=== PATIENT | female | born 1980 | race Caucasian/White ===

== ENCOUNTER 2018-10-08 15:25 | Emergency (ER) | payer BC, MEDICAID ==
--- NOTE | 2018-10-08 16:34 | EDM.PDOC ---
ED HPI GENERAL MEDICAL PROBLEM - General Chief Complaint: Lower Extremity Injury/Pain Stated Complaint: INJURED RIGHT FOOT Time Seen by Provider: 10/08/18 16:15 Source of Information: Reports: Patient, Family History Limitations: Reports: No Limitations - History of Present Illness INITIAL COMMENTS - FREE TEXT/NARRATIVE: 38-year-old female stumbled and turned her ankle last evening, today she is having significant pain bearing weight and swelling and pain around the ankle especially laterally. No other injury. Onset: Sudden Duration: Other (Last evening) Associated Symptoms: Reports: No Other Symptoms Right Feet Pain Score (Numeric/FACES): 8 - Related Data Allergies Allergy/AdvReac Type Severity Reaction Status Date / Time No Known Allergies Allergy Verified 10/08/18 16:06 Home Meds: Home Meds Baclofen 5 mg PO ASDIRECTED 10/08/18 [History] Gabapentin [Neurontin] 600 mg PO TID 10/08/18 [History] Metoprolol Succinate 25 mg PO BID 10/08/18 [History] Omeprazole 40 mg PO ONETIME 10/08/18 [History] Oxybutynin 10 mg PO BID 10/08/18 [History] Prazosin HCl [Prazosin] 500 mg PO BEDTIME 10/08/18 [History] SUMAtriptan Succinate [Imitrex] 25 mg PO DAILY PRN 10/08/18 [History] Venlafaxine [Effexor] 150 mg PO BID 10/08/18 [History] Past Medical History HEENT History: Reports: Impaired Vision Cardiovascular History: Reports: Hypertension Gastrointestinal History: Reports: GERD Genitourinary History: Reports: Other (See Below) Other Genitourinary History: bladder spasms [employer] History: Reports: Endometriosis, Musculoskeletal History: Reports: Other (See Below) Other Musculoskeletal History: herniated disk Neurological History: Reports: Migraines Psychiatric History: Reports: ADHD, Anxiety, Bipolar, PTSD Endocrine/Metabolic History: Reports: Obesity/BMI 30+ Oncologic (Cancer) History: Reports: Cervix - Past Surgical History Head Surgeries/Procedures: Reports: None Cardiovascular Surgical History: Reports: None GI Surgical History: Reports: Cholecystectomy Female Surgical History: Reports: Other (See Below) Other Female Surgeries/Procedures: right overy removed Endocrine Surgical History: Reports: None Neurological Surgical History: Reports: None Musculoskeletal Surgical History: Reports: None Oncologic Surgical History: Reports: None Dermatological Surgical History: Reports: None Social & Family History - Tobacco Use Smoking Status *Q: Current Every Day Smoker Years of Tobacco use: 20 Packs/Tins Daily: 1 Used Tobacco, but Quit: No Second Hand Smoke Exposure: Yes - Caffeine Use Caffeine Use: Reports: Coffee, Energy Drinks, Soda, Tea - Recreational Drug Use Recreational Drug Use: No Review of Systems - Review of Systems Review Of Systems: See Below Constitutional: Denies: Fever Respiratory: Reports: No Symptoms Cardiovascular: Reports: No Symptoms GI/Abdominal: Reports: No Symptoms Neurological: Reports: No Symptoms ED EXAM, GENERAL - Physical Exam Exam: See Below Exam Limited By: No Limitations General Appearance: Alert, No Apparent Distress Respiratory/Chest: No Respiratory Distress Extremities: Other (Exam is otherwise limited to the right lower extremity. Patient has swelling and pain over the lateral malleolus, and also at the base of the first metatarsal.) Course - Vital Signs Last Recorded V/S: Last Vital Signs Temp 98.3 F 10/08/18 16:11 Pulse 101 H 10/08/18 16:11 Resp 16 10/08/18 16:11 BP 108/65 10/08/18 16:11 Pulse Ox 98 10/08/18 16:11 - Re-Assessments/Exams Free Text/Narrative Re-Assessment/Exam: 10/08/18 16:33 X-ray of the right foot and right ankle were obtained. 10/08/18 17:28 X-rays of the right foot and right ankle were negative. A four-inch Justino wrap was applied to the foot. Patient was going to be fitted for crutches but was impatient and left before any further treatment could be given. She did ambulate out of the emergency room with very little if any limping. Departure - Departure Time of Disposition: 17:40 Disposition: Home, Self-Care 01 Clinical Impression: Sprain of right ankle Qualifiers: Encounter type: initial encounter Involved ligament of ankle: anterior talofibular ligament Qualified Code(s): S93.491A - Sprain of other ligament of right ankle, initial encounter - Discharge Information Instructions: Ankle Sprain, [id number] Referrals: PCP,None [Primary Care Provider] - Forms: ED Department Discharge Care Plan Goals: Increase activity as tolerated, Tylenol for pain. Recheck next week if not improving satisfactorily. Wrapping ankle to support swelling for the next several days will be beneficial.
--- NOTE | 2018-10-08 16:48 | CRLCR ---
HISTORY: Pain after injury COMPARISON: None available. FINDINGS: AP, lateral and oblique views of the right ankle were obtained for a total of three views. There is no sign of fracture or dislocation. The ankle mortise is intact. The talar dome is intact. There is no sign of a joint effusion. There is moderate lateral and mild anterior and medial soft tissue swelling. There is no sign of any gas in the soft tissues or radiopaque foreign body. No degenerative changes are seen IMPRESSION: No sign of acute osseous injury. Moderate lateral soft tissue swelling. Mild medial and anterior soft tissue swelling. Dictated by Sumeet Borjas MD @ Oct 08 2018 4:45PM Signed by Dr. Sumeet Borjas @ Oct 08 2018 4:46PM
--- NOTE | 2018-10-08 16:48 | CRLCR ---
HISTORY: Pain after injury COMPARISON: None available. FINDINGS: The right foot is examined with AP, lateral, and oblique views. There is no sign of fracture or dislocation. The soft tissues in the foot are normal in appearance without sign of radio-opaque foreign body. There is mild anterior swelling of the ankle. No significant degenerative disease is seen. IMPRESSION: No sign of acute osseous injury of the foot. Mild anterior ankle soft tissue swelling. Dictated by Sumeet Borjas MD @ Oct 08 2018 4:46PM Signed by Dr. Sumeet Borjas @ Oct 08 2018 4:47PM
== END 2018-10-08 17:30 | disposition home or self-care (01) ==
LOC: JP.ED 15:25
DX: S93.491A Sprain of other ligament of right ankle, initial encounter (principal); I10 Essential (primary) hypertension; K21.9 Gastro-esophageal reflux disease without esophagitis; F41.9 Anxiety disorder, unspecified; F31.9 Bipolar disorder, unspecified; F17.210 Nicotine dependence, cigarettes, uncomplicated; Z79.899 Other long term (current) drug therapy; X50.1XXA Overexertion from prolonged static or awkward postures, initial encounter
CPT/HCPCS: 73610-RT; 73630-RT; 99283-25

== ENCOUNTER 2019-01-01 11:08 | Observation (INO) | payer MEDICAID ==
--- NOTE | 2019-01-01 11:48 | EDM.PDOC ---
ED HPI GENERAL MEDICAL PROBLEM - General Chief Complaint: Abdominal Pain Stated Complaint: ABDOMINAL PAIN,PANCREATITIS Time Seen by Provider: 01/01/19 11:48 Source of Information: Reports: Patient History Limitations: Reports: No Limitations - History of Present Illness INITIAL COMMENTS - FREE TEXT/NARRATIVE: pt arrived with pain in epigastric area and rt upper abdoman. . She was hospitalized at [facility] for 1 day and then she left on her own, She was told that she had pancreatitis. She last drank about 2 weeks ago. Onset: Other (pt states her pain is alot worse--rating her pain at a 9. ) Duration: Day(s): Location: Reports: Abdomen Associated Symptoms: Reports: Loss of Appetite, Other (nausea an increased pain. ) Abdomen Pain Score (Numeric/FACES): 8 - Related Data Allergies Allergy/AdvReac Type Severity Reaction Status Date / Time No Known Allergies Allergy Verified 01/01/19 11:30 Home Meds: Home Meds Baclofen 5 mg PO ASDIRECTED 10/08/18 [History] Omeprazole 40 mg PO ONETIME 10/08/18 [History] Oxybutynin 10 mg PO BID 10/08/18 [History] Prazosin HCl [Prazosin] 500 mg PO BEDTIME 10/08/18 [History] SUMAtriptan Succinate [Imitrex] 25 mg PO DAILY PRN 10/08/18 [History] Venlafaxine [Effexor] 150 mg PO BID 10/08/18 [History] Ciprofloxacin HCl [Cipro] 500 mg PO BID 01/01/19 [History] Gabapentin [Neurontin] 300 mg PO ACLUNCH 01/01/19 [History] Gabapentin [Neurontin] 900 mg PO BIDAC 01/01/19 [History] Ondansetron [Zofran ODT] 4 mg PO Q6H PRN 01/01/19 [History] oxyCODONE 5 mg PO Q4HR 01/01/19 [History] Past Medical History HEENT History: Reports: Impaired Vision Cardiovascular History: Reports: Hypertension Gastrointestinal History: Reports: GERD, Pancreatitis Genitourinary History: Reports: Other (See Below) Other Genitourinary History: bladder spasms [employer] History: Reports: Endometriosis, Musculoskeletal History: Reports: Other (See Below) Other Musculoskeletal History: herniated disk Neurological History: Reports: Migraines Psychiatric History: Reports: ADHD, Anxiety, Bipolar, PTSD Endocrine/Metabolic History: Reports: Obesity/BMI 30+ Oncologic (Cancer) History: Reports: Cervix - Past Surgical History Head Surgeries/Procedures: Reports: None Cardiovascular Surgical History: Reports: None GI Surgical History: Reports: Cholecystectomy Female Surgical History: Reports: Other (See Below) Other Female Surgeries/Procedures: right overy removed Endocrine Surgical History: Reports: None Neurological Surgical History: Reports: None Musculoskeletal Surgical History: Reports: None Oncologic Surgical History: Reports: None Dermatological Surgical History: Reports: None Social & Family History - Tobacco Use Smoking Status *Q: Current Every Day Smoker Years of Tobacco use: 20 Packs/Tins Daily: 1 - Caffeine Use Caffeine Use: Reports: Coffee, Soda - Recreational Drug Use Recreational Drug Use: No ED ROS GENERAL - Review of Systems Review Of Systems: See Below Constitutional: Reports: Malaise, Weakness, Diaphoresis, Decreased Appetite HEENT: Reports: No Symptoms Respiratory: Reports: No Symptoms Cardiovascular: Reports: No Symptoms Endocrine: Reports: No Symptoms GI/Abdominal: Reports: Abdominal Pain, Other (pt has crampy abdomanal pain. She is having loose stools. She was hospitalized over the weekend at [facility] for a possible pancreatitis. She is now having crampy abdomanal pain and loose stools. ) : Reports: No Symptoms Musculoskeletal: Reports: No Symptoms ED EXAM, GI/ABD - Physical Exam Exam: See Below Text/Narrative:: Pt arrived very uncomfotable with pain in the rt upper abdoman and in the rt mid abdoman. She has not been vomiting but she is nauseated. Exam Limited By: No Limitations General Appearance: Alert, Anxious, Moderate Distress Ears: Normal TMs Nose: Normal Inspection Throat/Mouth: Normal Inspection Neck: Normal Inspection Respiratory/Chest: No Respiratory Distress Cardiovascular: Regular Rate, Rhythm GI/Abdominal Exam: Other (pt has a very tender abdoman in the rt upper and the rt midabdoman. ) (Female) Exam: Deferred Rectal (Female) Exam: Deferred Back Exam: Normal Inspection Extremities: Normal Inspection Neurological: Alert, Oriented, Normal Cognition Course - Vital Signs Last Recorded V/S: Last Vital Signs Temp 36.8 C 01/01/19 11:28 Pulse 80 01/01/19 15:26 Resp 14 01/01/19 15:26 BP 84/53 L 01/01/19 15:26 Pulse Ox 98 01/01/19 15:26 Orthostatic Blood Pressure [ 100/64 Standing] Orthostatic Blood Pressure [ 103/67 Sitting] Orthostatic Blood Pressure [ 77/44 Supine] - Orders/Labs/Meds Orders: Active Orders 24 hr Category Date Time Status Patient Status Manage Transfer [TRANSFER] Routine ADT 01/01/19 16:40 Active Orthostatic Vital Signs [RC] ASDIRECTED Care 01/01/19 15:44 Active CULTURE STOOL + SHIGATOX [RM] Stat Lab 01/01/19 16:04 Ordered CULTURE URINE [RM] Stat Lab 01/01/19 13:34 Received OVA + PARASITE EXAM Stat Lab 01/01/19 16:05 Ordered Sodium Chloride 0.9% [Normal Saline] 1,000 ml Med 01/01/19 12:15 Active IV ASDIRECTED Sodium Chloride 0.9% [Normal Saline] 1,000 ml Med 01/01/19 13:45 Active IV ASDIRECTED Sodium Chloride 0.9% [Normal Saline] 84 ml Med 01/01/19 12:30 Active IV ASDIRECTED Sodium Chloride 0.9% [Saline Flush] Med 01/01/19 12:00 Active 10 ml FLUSH ASDIRECTED PRN Isolation [COMM] Stat Oth 01/01/19 14:46 Ordered Saline Lock Insert [OM.PC] Routine Oth 01/01/19 12:00 Ordered Resuscitation Status Routine Resus Stat 01/01/19 16:42 Ordered Medication Orders Sodium Chloride (Normal Saline) 1,000 mls @ 999 mls/hr IV ASDIRECTED RICH Last Infusion: 01/01/19 13:28 Dose: 999 mls/hr Admin: 01/01/19 12:27 Dose: 999 mls/hr Sodium Chloride (Normal Saline) 84 mls @ 0 mls/hr IV ASDIRECTED RICH Last Admin: 01/01/19 13:03 Dose: 3.5 mls/hr Sodium Chloride (Normal Saline) 1,000 mls @ 999 mls/hr IV ASDIRECTED RICH Last Admin: 01/01/19 13:54 Dose: 999 mls/hr Sodium Chloride (Saline Flush) 10 ml FLUSH ASDIRECTED PRN PRN Reason: Keep Vein Open Last Admin: 01/01/19 13:03 Dose: 10 ml Admin: 01/01/19 12:27 Dose: 10 ml Labs: Laboratory Tests 01/01/19 01/01/19 01/01/19 Range/Units 11:38 11:38 11:38 WBC 9.1 (4.5-11.0) K/uL RBC 3.69 (3.30-5.50) M/uL Hgb 11.2 L (12.0-15.0) g/dL Hct 34.3 L (36.0-48.0) % MCV 93 (80-98) fL MCH 30 (27-31) pg MCHC 33 (32-36) % Plt Count 157 (150-400) K/uL Neut % (Auto) 72 H (36-66) % Lymph % (Auto) 16 L (24-44) % Wirt % (Auto) 11 H (2-6) % Eos % (Auto) 2 (2-4) % Baso % (Auto) 0 (0-1) % Sodium 136 L (140-148) mmol/L Potassium 3.3 L (3.6-5.2) mmol/L Chloride 103 (100-108) mmol/L Carbon Dioxide 25 (21-32) mmol/L Anion Gap 11.3 (5.0-14.0) mmol/L BUN 3 L (7-18) mg/dL Creatinine 1.3 H (0.6-1.0) mg/dL Est Cr Clr Drug Dosing 53.32 mL/min Estimated GFR (MDRD) 46 L (>60) Glucose 104 (74-106) mg/dL Calcium 8.3 L (8.5-10.1) mg/dL Total Bilirubin 0.5 (0.2-1.0) mg/dL AST 42 H (15-37) U/L ALT 35 (12-78) U/L Alkaline Phosphatase 108 (46-116) U/L C-Reactive Protein (0.0-0.3) mg/dL Total Protein 6.7 (6.4-8.2) g/dL Albumin 2.7 L (3.4-5.0) g/dL Globulin 4.0 H (2.3-3.5) g/dL Albumin/Globulin Ratio 0.7 L (1.2-2.2) Amylase 84 (25-115) U/L Lipase (73-393) U/L Urine Color (YELLOW) Urine Appearance (CLEAR) Urine pH (5.0-8.0) Ur Specific [place] (1.008-1.030) Urine Protein (NEGATIVE) mg/dL Urine Glucose (UA) (NEGATIVE) mg/dL Urine Ketones (NEGATIVE) mg/dL Urine Occult Blood (NEGATIVE) Urine Nitrite (NEGATIVE) Urine Bilirubin (NEGATIVE) Urine Urobilinogen (0.2-1.0) EU/dL Ur Leukocyte Esterase (NEGATIVE) Urine RBC (0-5) Urine WBC (0-5) Ur Epithelial Cells Amorphous Sediment Urine Bacteria Urine Mucus 01/01/19 01/01/19 01/01/19 Range/Units 11:38 11:50 12:16 WBC (4.5-11.0) K/uL RBC (3.30-5.50) M/uL Hgb (12.0-15.0) g/dL Hct (36.0-48.0) % MCV (80-98) fL MCH (27-31) pg MCHC (32-36) % Plt Count (150-400) K/uL Neut % (Auto) (36-66) % Lymph % (Auto) (24-44) % Wirt % (Auto) (2-6) % Eos % (Auto) (2-4) % Baso % (Auto) (0-1) % Sodium (140-148) mmol/L Potassium (3.6-5.2) mmol/L Chloride (100-108) mmol/L Carbon Dioxide (21-32) mmol/L Anion Gap (5.0-14.0) mmol/L BUN (7-18) mg/dL Creatinine (0.6-1.0) mg/dL Est Cr Clr Drug Dosing mL/min Estimated GFR (MDRD) (>60) Glucose (74-106) mg/dL Calcium (8.5-10.1) mg/dL Total Bilirubin (0.2-1.0) mg/dL AST (15-37) U/L ALT (12-78) U/L Alkaline Phosphatase (46-116) U/L C-Reactive Protein 11.33 H (0.0-0.3) mg/dL Total Protein (6.4-8.2) g/dL Albumin (3.4-5.0) g/dL Globulin (2.3-3.5) g/dL Albumin/Globulin Ratio (1.2-2.2) Amylase (25-115) U/L Lipase 300 (73-393) U/L Urine Color Yellow (YELLOW) Urine Appearance Slightly cloudy A (CLEAR) Urine pH 6.0 (5.0-8.0) Ur Specific [place] 1.010 (1.008-1.030) Urine Protein Negative (NEGATIVE) mg/dL Urine Glucose (UA) Negative (NEGATIVE) mg/dL Urine Ketones Negative (NEGATIVE) mg/dL Urine Occult Blood Trace-intact H (NEGATIVE) Urine Nitrite Negative (NEGATIVE) Urine Bilirubin Negative (NEGATIVE) Urine Urobilinogen 0.2 (0.2-1.0) EU/dL Ur Leukocyte Esterase Negative (NEGATIVE) Urine RBC 0-5 (0-5) Urine WBC 0-5 (0-5) Ur Epithelial Cells Moderate Amorphous Sediment Not seen Urine Bacteria Moderate Urine Mucus Not seen Meds: Medications Generic Name Dose Route Start Last Admin Trade Name Freq PRN Reason Stop Dose Admin Sodium Chloride 1,000 mls @ 999 mls/hr 01/01/19 12:15 01/01/19 13:28 Normal Saline IV Infused ASDIRECTED RICH Infusion Sodium Chloride 84 mls @ 0 mls/hr 01/01/19 12:30 01/01/19 13:03 Normal Saline IV 3.5 mls/hr ASDIRECTED RICH Administration KVO Sodium Chloride 1,000 mls @ 999 mls/hr 01/01/19 13:45 01/01/19 13:54 Normal Saline IV 999 mls/hr ASDIRECTED RICH Administration Sodium Chloride 10 ml 01/01/19 12:00 01/01/19 13:03 Saline Flush FLUSH 10 ml ASDIRECTED PRN Administration Keep Vein Open Discontinued Medications Generic Name Dose Route Start Last Admin Trade Name Freq PRN Reason Stop Dose Admin Hydromorphone HCl 0.5 mg 01/01/19 12:02 01/01/19 12:26 Dilaudid IVPUSH 01/01/19 12:03 0.5 mg ONETIME ONE Administration Hydromorphone HCl 0.5 mg 01/01/19 13:42 01/01/19 13:56 Dilaudid IVPUSH 01/01/19 13:43 0.5 mg ONETIME ONE Administration Hydromorphone HCl 1 mg 01/01/19 16:07 01/01/19 16:40 Dilaudid IVPUSH 01/01/19 16:08 1 mg ONETIME ONE Administration Iopamidol 140 ml 01/01/19 12:30 01/01/19 12:54 Isovue-300 (61%) IV 01/01/19 13:00 140 ml . DIRECTED RICH Administration Methylprednisolone Sodium Succinate 125 mg 01/01/19 16:38 Solu-Medrol IVPUSH 01/01/19 16:39 ONETIME ONE Ondansetron HCl 4 mg 01/01/19 13:42 01/01/19 13:55 Zofran IVPUSH 01/01/19 13:43 4 mg ONETIME ONE Administration Sodium Chloride 10 ml 01/01/19 12:25 01/01/19 13:02 Saline Flush FLUSH 01/01/19 12:26 10 ml ONETIME ONE Administration - Re-Assessments/Exams Free Text/Narrative Re-Assessment/Exam: 01/01/19 17:25 Pt had a neg clost diff, her wbc was mildly elevated . Urine looks fairly clear , HIS STOOL CULTURE WAS SET WAS o AND P. hER CAT SCAN REVEALED A FLUID FILLED BOWEL. sHE DID HAVE 3 STOOLS THAT WERE LOOSE WHILE HERE. hER CRP WAS VERY ELEVATED AT OVER 11. Departure - Departure Time of Disposition: 17:28 Disposition: Admitted As Inpatient 67 Condition: Fair Clinical Impression: Colitis, Dehydration, History of recurrent UTIs - Discharge Information Referrals: Yordan King, ASSISTANT DIRECTOR OF ADMISSIONS [Primary Care Provider] - Forms: ED Department Discharge Care Plan Goals: ADMIT TO dR Guzman. - My Orders Last 24 Hours: My Active Orders 01/01/19 12:00 Sodium Chloride 0.9% [Saline Flush] 10 ml FLUSH ASDIRECTED PRN Saline Lock Insert [OM.PC] Routine 01/01/19 12:15 Sodium Chloride 0.9% [Normal Saline] 1,000 ml IV ASDIRECTED 01/01/19 12:30 Sodium Chloride 0.9% [Normal Saline] 84 ml IV ASDIRECTED 01/01/19 13:34 CULTURE URINE [RM] Stat 01/01/19 13:45 Sodium Chloride 0.9% [Normal Saline] 1,000 ml IV ASDIRECTED 01/01/19 14:46 Isolation [COMM] Stat 01/01/19 15:44 Orthostatic Vital Signs [RC] ASDIRECTED 01/01/19 16:04 CULTURE STOOL + SHIGATOX [RM] Stat 01/01/19 16:05 OVA + PARASITE EXAM Stat - Assessment/Plan Last 24 Hours: My Active Orders 01/01/19 12:00 Sodium Chloride 0.9% [Saline Flush] 10 ml FLUSH ASDIRECTED PRN Saline Lock Insert [OM.PC] Routine 01/01/19 12:15 Sodium Chloride 0.9% [Normal Saline] 1,000 ml IV ASDIRECTED 01/01/19 12:30 Sodium Chloride 0.9% [Normal Saline] 84 ml IV ASDIRECTED 01/01/19 13:34 CULTURE URINE [RM] Stat 01/01/19 13:45 Sodium Chloride 0.9% [Normal Saline] 1,000 ml IV ASDIRECTED 01/01/19 14:46 Isolation [COMM] Stat 01/01/19 15:44 Orthostatic Vital Signs [RC] ASDIRECTED 01/01/19 16:04 CULTURE STOOL + SHIGATOX [RM] Stat 01/01/19 16:05 OVA + PARASITE EXAM Stat
[2019-01-01] MEDS ORDERED: HYDROmorphone 0.5 MG/0.5 ML Syringe IVPUSH ONE ×2 (12:02→13:42)
[2019-01-01] MEDS ORDERED: Sodium Chloride 0.9% 1,000 ML IV SCH ×2 (12:15→13:45)
[2019-01-01] MEDS ORDERED: Sodium Chloride 0.9% 10 ML Syringe FLUSH ONE (12:25)
[2019-01-01] MEDS: Sodium Chloride 0.9% 10 ML Syringe FLUSH PRN ×2 (12:27→13:03)
[2019-01-01] MEDS ORDERED: Iopamidol 612 MG/ML 150 ML Bottle IV SCH (12:30)
[2019-01-01] MEDS ORDERED: Ondansetron 4 MG/2 ML SDV IVPUSH ONE (13:42)
--- NOTE | 2019-01-01 14:06 | CRLCT ---
INDICATION: Upper abdominal pain. TECHNIQUE: CT abdomen and pelvis acquired with 140 cc Isovue-300 IV contrast. COMPARISON: None. FINDINGS: Lower chest: Anterior bibasilar atelectasis or scarring. Liver: Unremarkable. Normal in size and attenuation. No masses. Gallbladder and bile ducts: Status post cholecystectomy. Pancreas: Unremarkable. No mass or inflammation. Spleen: Unremarkable. Normal in size. No masses. Adrenal glands: Unremarkable. No nodules. Kidneys: Status post left nephrectomy. No sign of mass in the left renal bed. Normal right kidney. GI tract: There is moderate fluid retention in the colon with fluid levels. Small bowel is decompressed and normal. No focal inflammation or mass. Normal appendix. Vasculature: Unremarkable. Mesenteric arteries are patent. Lymph nodes: No lymphadenopathy. Omentum/Peritoneum/Abdominal Wall: Unremarkable. No sign of mass or infiltration. No free air or significant free fluid. Pelvis: Unremarkable. Bones: Degenerative disc spondylosis at L4-5. Otherwise unremarkable. IMPRESSION: 1. Nonspecific fluid retention throughout the colon suggesting diarrheal illness. GI tract is otherwise unremarkable. 2. Status post left nephrectomy. 3. No other acute or significant finding. Dictated by Blayne Joseph MD @ 01/01/2019 2:04:22 PM Please note that all CT scans at this facility use dose modulation, iterative reconstruction, and/or weight-based dosing when appropriate to reduce radiation dose to as low as reasonably achievable. Dictated by: Blayne Joseph MD @ 01/01/2019 14:04:32 (Electronically Signed)
[2019-01-01] MEDS ORDERED: HYDROmorphone 1 MG/ML Syringe IVPUSH ONE (16:07)
[2019-01-01] MEDS ORDERED: methylPREDNISolone Sodium Succinate 125 MG/2 ML SDV IVPUSH ONE (16:38)
--- NOTE | 2019-01-01 16:47 | PCM.HP.2 ---
H&P History of Present Illness - General Date of Service: 01/01/19 Admit Problem/Dx: Admission Diagnosis/Problem Admission Diagnosis/Problem Abdominal pain Source of Information: Patient, Provider History Limitations: Reports: No Limitations - History of Present Illness Initial Comments - Free Text/Narative: CC: my amada hurts HPI: Nicky presents to the emergency room today with several days of progressive abdominal pain as well as ongoing diarrhea. She reports her symptoms started just over a week ago with intense nausea, vomiting and watery diarrhea. She was hospitalized overnight for hydration 5 days ago and felt a little better the next day so she and home. The next day she started to develop abdominal pain. Initially this was a mild crampy pain throughout the lower part of her abdomen. This pain has progressed to be severe crampy pain that radiates throughout the lower half of her abdomen. She also has some sharp shooting pains in the right upper portion of her abdomen. Oxycodone that she received at the time of discharge didn't help her pain but she ran out of that medication last night. No obvious trigger to make the pain worse and it seems to come and go in waves. She has not had much to eat or drink because of the nausea but was able to eat a little more in the past 24 hours that she had been. She has not had vomiting and several days. She has had subjective fevers but has not measured any temperatures. She does not feel short of breath and is not coughing but has a slight discomfort in her chest with deep respirations. She does not have any dysuria or urinary frequency. No skin rashes. No obvious sick contacts. No travel. Workup in the emergency room revealed dehydration and mild hypokalemia. Her C- reactive protein is greater than 11. CT scan of the abdomen and pelvis revealed nonspecific fluid throughout the colon concerning for diarrheal illness but Clostridium difficile testing was negative. Patient will be admitted for hydration, symptom management and expedited workup. Abdomen Pain Score (Numeric/FACES): 4 - Related Data Allergies/Adverse Reactions: Allergies Allergy/AdvReac Type Severity Reaction Status Date / Time No Known Allergies Allergy Verified 01/01/19 11:30 Home Medications: Home Meds Baclofen 5 mg PO TID PRN 10/08/18 [History] Omeprazole 40 mg PO DAILY 10/08/18 [History] Oxybutynin 10 mg PO BID 10/08/18 [History] Prazosin HCl [Prazosin] 5 mg PO BEDTIME 10/08/18 [History] SUMAtriptan Succinate [Imitrex] 25 mg PO DAILY PRN 10/08/18 [History] Venlafaxine [Effexor] 150 mg PO BIDAC 10/08/18 [History] Ciprofloxacin HCl [Cipro] 250 mg PO BID 01/01/19 [History] Gabapentin [Neurontin] 300 mg PO ACLUNCH 01/01/19 [History] Gabapentin [Neurontin] 900 mg PO BIDAC 01/01/19 [History] Ondansetron [Zofran ODT] 4 mg PO Q6H PRN 01/01/19 [History] oxyCODONE 5 mg PO Q4HR 01/01/19 [History] Past Medical History HEENT History: Reports: Impaired Vision Cardiovascular History: Reports: Hypertension Gastrointestinal History: Reports: GERD, Pancreatitis Genitourinary History: Reports: Other (See Below) Other Genitourinary History: bladder spasms [employer] History: Reports: Endometriosis, Musculoskeletal History: Reports: Other (See Below) Other Musculoskeletal History: herniated disk Neurological History: Reports: Migraines Psychiatric History: Reports: ADHD, Anxiety, Bipolar, PTSD Endocrine/Metabolic History: Reports: Obesity/BMI 30+ Oncologic (Cancer) History: Reports: Cervix - Past Surgical History Head Surgeries/Procedures: Reports: None Cardiovascular Surgical History: Reports: None GI Surgical History: Reports: Cholecystectomy Female Surgical History: Reports: Other (See Below) Other Female Surgeries/Procedures: right overy removed Endocrine Surgical History: Reports: None Neurological Surgical History: Reports: None Musculoskeletal Surgical History: Reports: None Oncologic Surgical History: Reports: None Dermatological Surgical History: Reports: None Social & Family History - Family History GI: Reports: Irritable Bowel Syndrome. Denies: Inflammatory Bowel Disease - Tobacco Use Smoking Status *Q: Current Every Day Smoker Years of Tobacco use: 20 Packs/Tins Daily: 1 - Caffeine Use Caffeine Use: Reports: Coffee, Soda - Alcohol Use Alcohol Use History: Yes - Recreational Drug Use Recreational Drug Use: No H&P Review of Systems - Review of Systems: Review Of Systems: See Below Free Text/Narrative: A complete 12 point review of systems was obtained. Pertinent positives and negatives are noted in the history of present illness. All other systems were reviewed and were negative except as noted. Exam - Exam Exam: See Below - Vital Signs Vital Signs: Last Vital Signs Temp 36.8 C 01/01/19 11:28 Pulse 80 01/01/19 15:26 Resp 14 01/01/19 15:26 BP 84/53 L 01/01/19 15:26 Pulse Ox 98 01/01/19 15:26 Orthostatic Blood Pressure [ 100/64 Standing] Orthostatic Blood Pressure [ 103/67 Sitting] Orthostatic Blood Pressure [ 77/44 Supine] Weight: 93 kg - Exam Quality Assessment: No: Supplemental Oxygen General: Alert, Oriented, Cooperative. No: Mild Distress HEENT: Conjunctiva Clear. No: Mucosa Moist & [place] (dry), Scleral Icterus Neck: Supple Lungs: Clear to Auscultation, Normal Respiratory Effort Cardiovascular: Regular Rate, Regular Rhythm. No: Systolic Murmur GI/Abdominal Exam: Normal Bowel Sounds, Soft, No Distention, Tender (moderate right upper quadrant and mild bilateral lower quadrants). No: Guarding, Rebound Back Exam: Normal Inspection, Full Range of Motion Extremities: No Pedal Edema. No: Increased Warmth Peripheral Pulses: 1+: Dorsalis Pedis (L), Dorsalis Pedis (R) Skin: Warm, Dry Neuro Extensive - Mental Status: Alert, Oriented x3, Nl Response to Commands Neuro Extensive - Motor, Sensory, Reflexes: No: Dysarthria, Abnormal Motor, Tremor Psychiatric: Alert, Normal Affect - Patient Data Lab Results Last 24 hrs: Laboratory Results - last 24 hr 01/01/19 01/01/19 01/01/19 Range/Units 11:38 11:38 11:38 WBC 9.1 (4.5-11.0) K/uL RBC 3.69 (3.30-5.50) M/uL Hgb 11.2 L (12.0-15.0) g/dL Hct 34.3 L (36.0-48.0) % MCV 93 (80-98) fL MCH 30 (27-31) pg MCHC 33 (32-36) % Plt Count 157 (150-400) K/uL Neut % (Auto) 72 H (36-66) % Lymph % (Auto) 16 L (24-44) % Potter % (Auto) 11 H (2-6) % Eos % (Auto) 2 (2-4) % Baso % (Auto) 0 (0-1) % Sodium 136 L (140-148) mmol/L Potassium 3.3 L (3.6-5.2) mmol/L Chloride 103 (100-108) mmol/L Carbon Dioxide 25 (21-32) mmol/L Anion Gap 11.3 (5.0-14.0) mmol/L BUN 3 L (7-18) mg/dL Creatinine 1.3 H (0.6-1.0) mg/dL Est Cr Clr Drug Dosing 53.32 mL/min Estimated GFR (MDRD) 46 L (>60) Glucose 104 (74-106) mg/dL Calcium 8.3 L (8.5-10.1) mg/dL Total Bilirubin 0.5 (0.2-1.0) mg/dL AST 42 H (15-37) U/L ALT 35 (12-78) U/L Alkaline Phosphatase 108 (46-116) U/L C-Reactive Protein (0.0-0.3) mg/dL Total Protein 6.7 (6.4-8.2) g/dL Albumin 2.7 L (3.4-5.0) g/dL Globulin 4.0 H (2.3-3.5) g/dL Albumin/Globulin Ratio 0.7 L (1.2-2.2) Amylase 84 (25-115) U/L Lipase (73-393) U/L Urine Color (YELLOW) Urine Appearance (CLEAR) Urine pH (5.0-8.0) Ur Specific [place] (1.008-1.030) Urine Protein (NEGATIVE) mg/dL Urine Glucose (UA) (NEGATIVE) mg/dL Urine Ketones (NEGATIVE) mg/dL Urine Occult Blood (NEGATIVE) Urine Nitrite (NEGATIVE) Urine Bilirubin (NEGATIVE) Urine Urobilinogen (0.2-1.0) EU/dL Ur Leukocyte Esterase (NEGATIVE) Urine RBC (0-5) Urine WBC (0-5) Ur Epithelial Cells Amorphous Sediment Urine Bacteria Urine Mucus 01/01/19 01/01/19 01/01/19 Range/Units 11:38 11:50 12:16 WBC (4.5-11.0) K/uL RBC (3.30-5.50) M/uL Hgb (12.0-15.0) g/dL Hct (36.0-48.0) % MCV (80-98) fL MCH (27-31) pg MCHC (32-36) % Plt Count (150-400) K/uL Neut % (Auto) (36-66) % Lymph % (Auto) (24-44) % Potter % (Auto) (2-6) % Eos % (Auto) (2-4) % Baso % (Auto) (0-1) % Sodium (140-148) mmol/L Potassium (3.6-5.2) mmol/L Chloride (100-108) mmol/L Carbon Dioxide (21-32) mmol/L Anion Gap (5.0-14.0) mmol/L BUN (7-18) mg/dL Creatinine (0.6-1.0) mg/dL Est Cr Clr Drug Dosing mL/min Estimated GFR (MDRD) (>60) Glucose (74-106) mg/dL Calcium (8.5-10.1) mg/dL Total Bilirubin (0.2-1.0) mg/dL AST (15-37) U/L ALT (12-78) U/L Alkaline Phosphatase (46-116) U/L C-Reactive Protein 11.33 H (0.0-0.3) mg/dL Total Protein (6.4-8.2) g/dL Albumin (3.4-5.0) g/dL Globulin (2.3-3.5) g/dL Albumin/Globulin Ratio (1.2-2.2) Amylase (25-115) U/L Lipase 300 (73-393) U/L Urine Color Yellow (YELLOW) Urine Appearance Slightly cloudy A (CLEAR) Urine pH 6.0 (5.0-8.0) Ur Specific [place] 1.010 (1.008-1.030) Urine Protein Negative (NEGATIVE) mg/dL Urine Glucose (UA) Negative (NEGATIVE) mg/dL Urine Ketones Negative (NEGATIVE) mg/dL Urine Occult Blood Trace-intact H (NEGATIVE) Urine Nitrite Negative (NEGATIVE) Urine Bilirubin Negative (NEGATIVE) Urine Urobilinogen 0.2 (0.2-1.0) EU/dL Ur Leukocyte Esterase Negative (NEGATIVE) Urine RBC 0-5 (0-5) Urine WBC 0-5 (0-5) Ur Epithelial Cells Moderate Amorphous Sediment Not seen Urine Bacteria Moderate Urine Mucus Not seen Result Diagrams: 01/01/19 11:38 01/01/19 11:38 Zoltan Results Last 24 hrs: Microbiology 01/01/19 16:09 Stool for WBCs - Final Stool / Feces NO WBC SEEN REFERENCE RANGE: NO WBC SEEN 01/01/19 14:54 Clostridioides difficile (PCR) - Final Stool / Feces NEGATIVE CDIFF TOXIN Imaging Impressions Last 24 hrs: CT scan of the abdomen and pelvis - images personally reviewed - she is status post left nephrectomy. No evidence for bowel obstruction. There is nonspecific fluid retention throughout the colon. No bowel wall thickening in large or small bowel. *Q Meaningful Use (ADM) - VTE Risk Assess *Q Each Risk Factor Represents 1 Point: Obesity ( BMI > 25 kg/m2) Total Score 1 Point Risk Factors: 1 Each Risk Factor Represents 2 Points: None Total Score 2 Point Risk Factors: 0 Each Risk Factor Represents 3 Points: None Total Score 3 Point Risk Factors: 0 Each Risk Factor Represents 5 Points: None Total Score 5 Point Risk Factors: 0 Venous Thromboembolism Risk Factor Score *Q: 1 - Problem List (1) Generalized abdominal pain SNOMED Code(s): 409836245 ICD Code: R10.84 - GENERALIZED ABDOMINAL PAIN Status: Acute Current Visit : Yes (2) Diarrhea SNOMED Code(s): 30672561 ICD Code: R19.7 - DIARRHEA, UNSPECIFIED Status: Acute Current Visit: Yes Qualifiers: Diarrhea type: presumed infectious Qualified Code(s): R19.7 - Diarrhea, unspecified (3) Hypokalemia SNOMED Code(s): 76647616 ICD Code: E87.6 - HYPOKALEMIA Status: Acute Current Visit: Yes (4) Tobacco dependence syndrome SNOMED Code(s): 33007501 ICD Code: F17.200 - NICOTINE DEPENDENCE, UNSPECIFIED, UNCOMPLICATED Status : Chronic Current Visit: Yes Problem List Initiated/Reviewed/Updated: Yes Orders Last 24hrs: Active Orders 24 hr Category Date Time Status Patient Status Manage Transfer [TRANSFER] Routine ADT 01/01/19 16:40 Ordered Orthostatic Vital Signs [RC] ASDIRECTED Care 01/01/19 15:44 Active CULTURE STOOL + SHIGATOX [RM] Stat Lab 01/01/19 16:04 Received CULTURE URINE [RM] Stat Lab 01/01/19 13:34 Received OVA + PARASITE EXAM Stat Lab 01/01/19 16:05 Ordered Sodium Chloride 0.9% [Normal Saline] 1,000 ml Med 01/01/19 12:15 Active IV ASDIRECTED Sodium Chloride 0.9% [Normal Saline] 1,000 ml Med 01/01/19 13:45 Active IV ASDIRECTED Sodium Chloride 0.9% [Normal Saline] 84 ml Med 01/01/19 12:30 Active IV ASDIRECTED Sodium Chloride 0.9% [Saline Flush] Med 01/01/19 12:00 Active 10 ml FLUSH ASDIRECTED PRN Isolation [COMM] Stat Oth 01/01/19 14:46 Ordered Saline Lock Insert [OM.PC] Routine Oth 01/01/19 12:00 Ordered Resuscitation Status Routine Resus Stat 01/01/19 16:42 Ordered Medication Orders Sodium Chloride (Normal Saline) 1,000 mls @ 999 mls/hr IV ASDIRECTED RICH Last Infusion: 01/01/19 13:28 Dose: 999 mls/hr Admin: 01/01/19 12:27 Dose: 999 mls/hr Sodium Chloride (Normal Saline) 84 mls @ 0 mls/hr IV ASDIRECTED RICH Last Admin: 01/01/19 13:03 Dose: 3.5 mls/hr Sodium Chloride (Normal Saline) 1,000 mls @ 999 mls/hr IV ASDIRECTED RICH Last Admin: 01/01/19 13:54 Dose: 999 mls/hr Sodium Chloride (Saline Flush) 10 ml FLUSH ASDIRECTED PRN PRN Reason: Keep Vein Open Last Admin: 01/01/19 13:03 Dose: 10 ml Admin: 01/01/19 12:27 Dose: 10 ml Assessment/Plan Comment:: ASSESSMENT AND PLAN - Generalized abdominal pain with nausea and diarrhea - C-reactive protein significantly elevated but CT scan did not show obvious cause. There was nonspecific fluid in the colon. White blood cell count normal. No fevers. Stool culture and stool for white blood cells is pending. Viral gastroenteritis could be considered. Lipase is normal. CT scan without acute pathology. -IV fluids -Symptomatic management -One-time dose of steroids -Follow-up stool culture and fecal leukocytes -Consider colonoscopy if not getting better or if she gets worse Hypokalemia - mild at this time and will be replaced overnight. -40 mEq via IV over 4 hours -IV fluids with potassium overnight -recheck in the morning -check magnesium and supplement as indicated Tobacco dependence - encourage cessation -Nicotine patch as needed Maintenance issues - - DVT prophylaxis - mechanical - GI prophylaxis - PPI - Nutrition - regular diet if tolerated - Nash catheter - not indicated CODE STATUS - full code Admission justification - patient will be referred observation status for symptom management and hydration. Disposition - I would anticipate discharge home after the hospital stay Primary care physician - patient is in the process of establishing local primary care Quique Merrill M.D. - Mortality Measure Prognosis:: Good
[2019-01-01] MEDS ORDERED: Ondansetron 4 MG Tab.DIS PO PRN (17:51)
[2019-01-01] MEDS ORDERED: Ondansetron 4 MG/2 ML SDV IV PRN (17:51)
[2019-01-01] MEDS ORDERED: Potassium Chloride 20 MEQ, Lidocaine 1% 2 ML in Sodium Chloride 0.9% 100 ML IV SCH (17:51)
[2019-01-01] MEDS ORDERED: Nicotine 14 MG/24 Hr Patch TRDERM PRN (17:51)
[2019-01-01] MEDS ORDERED: LORazepam 2 MG/ML SDV IVPUSH PRN (17:51)
[2019-01-01] MEDS: NS + KCl 20mEq/L 1,000 ML IV SCH (18:21)
[2019-01-01] MEDS: Acetaminophen 325 MG Tab PO PRN (20:03)
[2019-01-01] MEDS: oxyCODONE 5 MG Tab PO PRN (20:04)
[2019-01-01] MEDS: Potassium Chloride 20 MEQ in Premix Bag 1 BAG IV SCH ×2 (20:06→23:21)
[2019-01-01] MEDS: Lidocaine 1% PF 2 ML SDV IV SCH ×2 (20:06→23:21)
[2019-01-01] MEDS ORDERED: Baclofen 10 MG Tab PO PRN (21:00)
[2019-01-01] MEDS ORDERED: Prazosin 1 MG Cap PO SCH (21:00)
[2019-01-01] MEDS: HYDROmorphone 1 MG/ML Syringe IVPUSH PRN ×2 (21:20→23:44)
[2019-01-01] MEDS: Lactobacillus Rhamnosus GG (Probiotic) Cap PO SCH (21:23)
[2019-01-01] MEDS: Oxybutynin 5 MG Tab PO SCH (21:23)
[2019-01-02] MEDS: oxyCODONE 5 MG Tab PO PRN ×3 (00:15→12:13)
[2019-01-02] MEDS: Acetaminophen 325 MG Tab PO PRN ×3 (00:15→12:16)
[2019-01-02] MEDS: NS + KCl 20mEq/L 1,000 ML IV SCH (04:20)
[2019-01-02] MEDS ORDERED: Pantoprazole 40 MG Tab.CR PO SCH (07:30)
[2019-01-02] MEDS ORDERED: Venlafaxine 100 MG Tab PO SCH (07:30)
[2019-01-02] MEDS ORDERED: Gabapentin 300 MG Cap PO SCH ×2 (07:30→11:00)
[2019-01-02] MEDS: Lactobacillus Rhamnosus GG (Probiotic) Cap PO SCH (08:45)
[2019-01-02] MEDS: Oxybutynin 5 MG Tab PO SCH (08:46)
[2019-01-02] MEDS: HYDROmorphone 1 MG/ML Syringe IVPUSH PRN (08:53)
[2019-01-02] MEDS ORDERED: Venlafaxine 75 MG Tab PO SCH (09:00)
[2019-01-02] MEDS ORDERED: Hyoscyamine 0.125 MG Tab.SL SL PRN (10:58)
--- NOTE | 2019-01-02 11:00 | PCM.PN ---
- General Info Date of Service: 01/02/19 Functional Status: Reports: Pain Controlled, Tolerating Diet - Review of Systems General: Denies: Fever Gastrointestinal: Reports: Abdominal Pain - Patient Data Vitals - Most Recent: Last Vital Signs Temp 36.1 C 01/02/19 07:21 Pulse 73 01/02/19 07:21 Resp 18 01/02/19 07:21 BP 110/59 L 01/02/19 07:21 Pulse Ox 93 L 01/02/19 07:21 Orthostatic Blood Pressure [ 100/64 Standing] Orthostatic Blood Pressure [ 103/67 Sitting] Orthostatic Blood Pressure [ 77/44 Supine] Weight - Most Recent: 93 kg I&O - Last 24 Hours: Intake & Output 01/01/19 01/02/19 01/02/19 22:59 06:59 14:59 Intake Total 100 1000 600 Output Total 400 550 Balance 100 600 50 Lab Results Last 24 Hours: Laboratory Results - last 24 hr 01/01/19 01/01/19 01/01/19 Range/Units 11:38 11:38 11:38 WBC 9.1 (4.5-11.0) K/uL RBC 3.69 (3.30-5.50) M/uL Hgb 11.2 L (12.0-15.0) g/dL Hct 34.3 L (36.0-48.0) % MCV 93 (80-98) fL MCH 30 (27-31) pg MCHC 33 (32-36) % Plt Count 157 (150-400) K/uL Neut % (Auto) 72 H (36-66) % Lymph % (Auto) 16 L (24-44) % [place] % (Auto) 11 H (2-6) % Eos % (Auto) 2 (2-4) % Baso % (Auto) 0 (0-1) % Sodium 136 L (140-148) mmol/L Potassium 3.3 L (3.6-5.2) mmol/L Chloride 103 (100-108) mmol/L Carbon Dioxide 25 (21-32) mmol/L Anion Gap 11.3 (5.0-14.0) mmol/L BUN 3 L (7-18) mg/dL Creatinine 1.3 H (0.6-1.0) mg/dL Est Cr Clr Drug Dosing 53.32 mL/min Estimated GFR (MDRD) 46 L (>60) Glucose 104 (74-106) mg/dL Calcium 8.3 L (8.5-10.1) mg/dL Magnesium (1.8-2.4) mg/dL Total Bilirubin 0.5 (0.2-1.0) mg/dL AST 42 H (15-37) U/L ALT 35 (12-78) U/L Alkaline Phosphatase 108 (46-116) U/L C-Reactive Protein (0.0-0.3) mg/dL Total Protein 6.7 (6.4-8.2) g/dL Albumin 2.7 L (3.4-5.0) g/dL Globulin 4.0 H (2.3-3.5) g/dL Albumin/Globulin Ratio 0.7 L (1.2-2.2) Amylase 84 (25-115) U/L Lipase (73-393) U/L Urine Color (YELLOW) Urine Appearance (CLEAR) Urine pH (5.0-8.0) Ur Specific [place] (1.008-1.030) Urine Protein (NEGATIVE) mg/dL Urine Glucose (UA) (NEGATIVE) mg/dL Urine Ketones (NEGATIVE) mg/dL Urine Occult Blood (NEGATIVE) Urine Nitrite (NEGATIVE) Urine Bilirubin (NEGATIVE) Urine Urobilinogen (0.2-1.0) EU/dL Ur Leukocyte Esterase (NEGATIVE) Urine RBC (0-5) Urine WBC (0-5) Ur Epithelial Cells Amorphous Sediment Urine Bacteria Urine Mucus 01/01/19 01/01/19 01/01/19 Range/Units 11:38 11:50 12:16 WBC (4.5-11.0) K/uL RBC (3.30-5.50) M/uL Hgb (12.0-15.0) g/dL Hct (36.0-48.0) % MCV (80-98) fL MCH (27-31) pg MCHC (32-36) % Plt Count (150-400) K/uL Neut % (Auto) (36-66) % Lymph % (Auto) (24-44) % [place] % (Auto) (2-6) % Eos % (Auto) (2-4) % Baso % (Auto) (0-1) % Sodium (140-148) mmol/L Potassium (3.6-5.2) mmol/L Chloride (100-108) mmol/L Carbon Dioxide (21-32) mmol/L Anion Gap (5.0-14.0) mmol/L BUN (7-18) mg/dL Creatinine (0.6-1.0) mg/dL Est Cr Clr Drug Dosing mL/min Estimated GFR (MDRD) (>60) Glucose (74-106) mg/dL Calcium (8.5-10.1) mg/dL Magnesium (1.8-2.4) mg/dL Total Bilirubin (0.2-1.0) mg/dL AST (15-37) U/L ALT (12-78) U/L Alkaline Phosphatase (46-116) U/L C-Reactive Protein 11.33 H (0.0-0.3) mg/dL Total Protein (6.4-8.2) g/dL Albumin (3.4-5.0) g/dL Globulin (2.3-3.5) g/dL Albumin/Globulin Ratio (1.2-2.2) Amylase (25-115) U/L Lipase 300 (73-393) U/L Urine Color Yellow (YELLOW) Urine Appearance Slightly cloudy A (CLEAR) Urine pH 6.0 (5.0-8.0) Ur Specific [place] 1.010 (1.008-1.030) Urine Protein Negative (NEGATIVE) mg/dL Urine Glucose (UA) Negative (NEGATIVE) mg/dL Urine Ketones Negative (NEGATIVE) mg/dL Urine Occult Blood Trace-intact H (NEGATIVE) Urine Nitrite Negative (NEGATIVE) Urine Bilirubin Negative (NEGATIVE) Urine Urobilinogen 0.2 (0.2-1.0) EU/dL Ur Leukocyte Esterase Negative (NEGATIVE) Urine RBC 0-5 (0-5) Urine WBC 0-5 (0-5) Ur Epithelial Cells Moderate Amorphous Sediment Not seen Urine Bacteria Moderate Urine Mucus Not seen 01/01/19 01/02/19 01/02/19 Range/Units 17:51 05:05 05:05 WBC 7.6 (4.5-11.0) K/uL RBC 3.31 (3.30-5.50) M/uL Hgb 10.0 L (12.0-15.0) g/dL Hct 31.4 L (36.0-48.0) % MCV 95 (80-98) fL MCH 30 (27-31) pg MCHC 32 (32-36) % Plt Count 140 L (150-400) K/uL Neut % (Auto) (36-66) % Lymph % (Auto) (24-44) % [place] % (Auto) (2-6) % Eos % (Auto) (2-4) % Baso % (Auto) (0-1) % Sodium 138 L (140-148) mmol/L Potassium 4.3 (3.6-5.2) mmol/L Chloride 109 H (100-108) mmol/L Carbon Dioxide 21 (21-32) mmol/L Anion Gap 12.3 (5.0-14.0) mmol/L BUN 3 L (7-18) mg/dL Creatinine 1.0 (0.6-1.0) mg/dL Est Cr Clr Drug Dosing 69.31 mL/min Estimated GFR (MDRD) > 60 (>60) Glucose 161 H (74-106) mg/dL Calcium 7.9 L (8.5-10.1) mg/dL Magnesium 1.9 (1.8-2.4) mg/dL Total Bilirubin 0.2 D (0.2-1.0) mg/dL AST 31 (15-37) U/L ALT 27 (12-78) U/L Alkaline Phosphatase 96 (46-116) U/L C-Reactive Protein (0.0-0.3) mg/dL Total Protein 6.3 L (6.4-8.2) g/dL Albumin 2.4 L (3.4-5.0) g/dL Globulin 3.9 H (2.3-3.5) g/dL Albumin/Globulin Ratio 0.6 L (1.2-2.2) Amylase (25-115) U/L Lipase (73-393) U/L Urine Color (YELLOW) Urine Appearance (CLEAR) Urine pH (5.0-8.0) Ur Specific [place] (1.008-1.030) Urine Protein (NEGATIVE) mg/dL Urine Glucose (UA) (NEGATIVE) mg/dL Urine Ketones (NEGATIVE) mg/dL Urine Occult Blood (NEGATIVE) Urine Nitrite (NEGATIVE) Urine Bilirubin (NEGATIVE) Urine Urobilinogen (0.2-1.0) EU/dL Ur Leukocyte Esterase (NEGATIVE) Urine RBC (0-5) Urine WBC (0-5) Ur Epithelial Cells Amorphous Sediment Urine Bacteria Urine Mucus Zoltan Results Last 24 Hours: Microbiology 01/01/19 16:04 Shiga Toxin I - Final Stool / Feces NEGATIVE FOR SHIGA TOXIN 1 Shiga Toxin II - Final NEGATIVE FOR SHIGA TOXIN 2 REFERENCE RANGE: NEGATIVE 01/01/19 16:09 Stool for WBCs - Final Stool / Feces NO WBC SEEN REFERENCE RANGE: NO WBC SEEN 01/01/19 14:54 Clostridioides difficile (PCR) - Final Stool / Feces NEGATIVE CDIFF TOXIN Med Orders - Current: Current Medications Acetaminophen (Tylenol) 650 mg PO Q4H PRN PRN Reason: Pain (Mild 1-3)/fever Last Admin: 01/02/19 07:30 Dose: 650 mg Amitriptyline HCl (Elavil) 100 mg PO BEDTIME [facility] Last Admin: 01/01/19 21:23 Dose: 100 mg Baclofen (Lioresal) 5 mg PO TID PRN PRN Reason: MUSCLE SPASMS Last Admin: 01/01/19 21:23 Dose: 5 mg Gabapentin (Neurontin) 300 mg PO ACLUNCH [facility] Last Admin: 01/02/19 10:52 Dose: 300 mg Gabapentin (Neurontin) 900 mg PO BIDAC [facility] Last Admin: 01/02/19 07:35 Dose: 900 mg Hydromorphone HCl (Dilaudid) 1 mg IVPUSH Q2H PRN PRN Reason: Pain (severe 7-10) Last Admin: 01/02/19 08:53 Dose: 1 mg Hyoscyamine (Hyomax-Sl) 0.125 mg SL Q4H PRN PRN Reason: crampy abdominal pain Potassium Chloride/Sodium Chloride (Normal Saline With 20 Meq Kcl) 1,000 mls @ 100 mls/hr IV ASDIRECTED [facility] Last Admin: 01/02/19 04:20 Dose: 100 mls/hr Lactobacillus Rhamnosus (Culturelle) 1 cap PO BID [facility] Last Admin: 01/02/19 08:45 Dose: 1 cap Lorazepam (Ativan) 0.5 mg IVPUSH Q4H PRN PRN Reason: Nausea/Vomiting Nicotine (Habitrol) 14 mg TRDERM DAILY PRN PRN Reason: nicotine craving Last Admin: 01/01/19 18:22 Dose: 14 mg Ondansetron HCl (Zofran Odt) 4 mg PO Q6H PRN PRN Reason: Nausea able to take PO Ondansetron HCl (Zofran) 4 mg IV Q6H PRN PRN Reason: Nausea/Vomiting Oxybutynin Chloride (Oxybutynin) 10 mg PO BID [facility] Last Admin: 01/02/19 08:46 Dose: 10 mg Oxycodone HCl (Oxycodone) 5 mg PO Q4H PRN PRN Reason: Pain (moderate 4-6) Last Admin: 01/02/19 07:28 Dose: 5 mg Pantoprazole Sodium (Protonix) 40 mg PO ACBREAKFAST [facility] Last Admin: 01/02/19 07:35 Dose: 40 mg Prazosin HCl (Minpress) 5 mg PO BEDTIME [facility] Last Admin: 01/01/19 21:31 Dose: 5 mg Sodium Chloride (Saline Flush) 10 ml FLUSH ASDIRECTED PRN PRN Reason: Keep Vein Open Last Admin: 01/01/19 13:03 Dose: 10 ml Venlafaxine HCl (Effexor) 150 mg PO BID [facility] Last Admin: 01/02/19 08:46 Dose: 150 mg Discontinued Medications Hydromorphone HCl (Dilaudid) 0.5 mg IVPUSH ONETIME ONE Stop: 01/01/19 12:03 Last Admin: 01/01/19 12:26 Dose: 0.5 mg Hydromorphone HCl (Dilaudid) 0.5 mg IVPUSH ONETIME ONE Stop: 01/01/19 13:43 Last Admin: 01/01/19 13:56 Dose: 0.5 mg Hydromorphone HCl (Dilaudid) 1 mg IVPUSH ONETIME ONE Stop: 01/01/19 16:08 Last Admin: 01/01/19 16:40 Dose: 1 mg Sodium Chloride (Normal Saline) 1,000 mls @ 999 mls/hr IV ASDIRECTED [facility] Last Infusion: 01/01/19 13:28 Dose: Infused Sodium Chloride (Normal Saline) 84 mls @ 0 mls/hr IV ASDIRECTED [facility] Last Admin: 01/01/19 13:03 Dose: 3.5 mls/hr Sodium Chloride (Normal Saline) 1,000 mls @ 999 mls/hr IV ASDIRECTED [facility] Last Admin: 01/01/19 13:54 Dose: 999 mls/hr Potassium Chloride 20 meq/Lidocaine HCl 2 ml/ Sodium Chloride 112 mls @ 50 mls/ hr IV Q2H [facility] Stop: 01/01/19 21:50 Last Admin: 01/01/19 18:37 Dose: Not Given Potassium Chloride 20 meq/ (Premix) 100 mls @ 50 mls/hr IV Q2H [facility] Stop: 01/01/19 22:59 Last Admin: 01/01/19 23:21 Dose: 50 mls/hr Iopamidol (Isovue-300 (61%)) 140 ml IV . DIRECTED [facility] Stop: 01/01/19 13:00 Last Admin: 01/01/19 12:54 Dose: 140 ml Lidocaine HCl (Xylocaine-Mpf 1%) 2 ml IV Q2H [facility] Stop: 01/01/19 21:01 Last Admin: 01/01/19 23:21 Dose: 2 ml Lidocaine HCl (Xylocaine-Mpf 1%) Confirm Administered Dose 5 ml .ROUTE .STK-MED ONE Stop: 01/01/19 22:58 Last Admin: 01/01/19 23:27 Dose: Not Given Methylprednisolone Sodium Succinate (Solu-Medrol) 125 mg IVPUSH ONETIME ONE Stop: 01/01/19 16:39 Last Admin: 01/01/19 17:43 Dose: 125 mg Ondansetron HCl (Zofran) 4 mg IVPUSH ONETIME ONE Stop: 01/01/19 13:43 Last Admin: 01/01/19 13:55 Dose: 4 mg Sodium Chloride (Saline Flush) 10 ml FLUSH ONETIME ONE Stop: 01/01/19 12:26 Last Admin: 01/01/19 13:02 Dose: 10 ml Venlafaxine HCl (Effexor) 150 mg PO BIDAC [facility] - Exam Quality Assessment: No: Supplemental Oxygen General: Alert, Oriented, Cooperative, No Acute Distress Lungs: Normal Respiratory Effort Cardiovascular: Regular Rate, Regular Rhythm GI/Abdominal Exam: Soft, No Distention Extremities: No Pedal Edema Psy/Mental Status: Alert, Normal Affect - Problem List & Annotations (1) Generalized abdominal pain SNOMED Code(s): 535999614 Code(s): R10.84 - GENERALIZED ABDOMINAL PAIN Status: Acute Current Visit : Yes (2) Diarrhea SNOMED Code(s): 08249890 Code(s): R19.7 - DIARRHEA, UNSPECIFIED Status: Acute Current Visit: Yes Qualifiers: Diarrhea type: presumed infectious Qualified Code(s): R19.7 - Diarrhea, unspecified (3) Hypokalemia SNOMED Code(s): 95984562 Code(s): E87.6 - HYPOKALEMIA Status: Acute Current Visit: Yes (4) Tobacco dependence syndrome SNOMED Code(s): 79393690 Code(s): F17.200 - NICOTINE DEPENDENCE, UNSPECIFIED, UNCOMPLICATED Status: Chronic Current Visit: Yes - My Orders Last 24 Hours: My Active Orders 01/01/19 16:42 Resuscitation Status Routine 01/01/19 17:51 Patient Status [ADT] Routine Intake and Output [RC] Q12H Notify Provider Vital Signs [RC] ASDIRECTED Oxygen Therapy [RC] PRN Up ad Huong [RC] ASDIRECTED VTE/DVT Education [RC] Per Unit Routine Vital Signs [RC] Q4H Acetaminophen [Tylenol] 650 mg PO Q4H PRN HYDROmorphone [Dilaudid] 1 mg IVPUSH Q2H PRN LORazepam [Ativan] 0.5 mg IVPUSH Q4H PRN NS + KCl 20mEq/L [Normal Saline with 20 mEq KCl] 1,000 ml IV ASDIRECTED Nicotine [Habitrol] 14 mg TRDERM DAILY PRN Ondansetron [Zofran ODT] 4 mg PO Q6H PRN Ondansetron [Zofran] 4 mg IV Q6H PRN oxyCODONE 5 mg PO Q4H PRN Sequential Compression Device [OM.PC] Routine 01/01/19 21:00 Amitriptyline [Elavil] 100 mg PO BEDTIME Baclofen [Lioresal] 5 mg PO TID PRN Lactobacillus Rhamnosus GG [Culturelle] 1 cap PO BID Oxybutynin 10 mg PO BID Prazosin [Minpress] 5 mg PO BEDTIME 01/01/19 Dinner Regular Diet [DIET] 01/02/19 07:30 Gabapentin [Neurontin] 900 mg PO BIDAC Pantoprazole [ProTONIX] 40 mg PO ACBREAKFAST 01/02/19 09:00 Venlafaxine [Effexor] 150 mg PO BID 01/02/19 10:58 Hyoscyamine [Hyomax-SL] 0.125 mg SL Q4H PRN 01/02/19 11:00 Gabapentin [Neurontin] 300 mg PO ACLUNCH - Plan Plan:: ASSESSMENT AND PLAN - Generalized abdominal pain with nausea and diarrhea - C-reactive protein significantly elevated but CT scan did not show obvious cause. There was nonspecific fluid in the colon. White blood cell count normal. No fevers. Stool culture and stool for white blood cells is pending. Viral gastroenteritis could be considered. Lipase is normal. CT scan without acute pathology. -IV fluids -Symptomatic management -One-time dose of steroids -Follow-up stool culture and fecal leukocytes -Consider colonoscopy if not getting better or if she gets worse Hypokalemia - mild at this time and will be replaced overnight. -40 mEq via IV over 4 hours -IV fluids with potassium overnight -recheck in the morning -check magnesium and supplement as indicated Tobacco dependence - encourage cessation -Nicotine patch as needed Maintenance issues - - DVT prophylaxis - mechanical - GI prophylaxis - PPI - Nutrition - regular diet if tolerated - Nash catheter - not indicated CODE STATUS - full code Admission justification - patient will be referred observation status for symptom management and hydration. Disposition - I would anticipate discharge home after the hospital stay Primary care physician - patient is in the process of establishing local primary care Quique Merrill M.D.
--- NOTE | 2019-01-02 11:41 | PCM.DCSUM1 ---
Discharge Summary - Hospital Course Brief History: 38-year-old female with tobacco dependence and recent admission for possible pancreatitis who presented with abdominal pain and diarrhea. She was admitted for management of hydration and abdominal pain with presumed viral gastroenteritis. Diagnosis: Stroke: No - Discharge Data Discharge Date: 01/02/19 Discharge Disposition: Home, Self-Care 01 Condition: Fair - Referral to Home Health Primary Care Physician: Yordan King NP - Discharge Diagnosis/Problem(s) (1) Viral gastroenteritis SNOMED Code(s): 025495737 ICD Code: A08.4 - VIRAL INTESTINAL INFECTION, UNSPECIFIED Status: Acute Current Visit: Yes (2) Generalized abdominal pain SNOMED Code(s): 773044409 ICD Code: R10.84 - GENERALIZED ABDOMINAL PAIN Status: Acute Current Visit : Yes (3) Diarrhea SNOMED Code(s): 97989654 ICD Code: R19.7 - DIARRHEA, UNSPECIFIED Status: Acute Current Visit: Yes Qualifiers: Diarrhea type: presumed infectious Qualified Code(s): R19.7 - Diarrhea, unspecified (4) Hypokalemia SNOMED Code(s): 36925558 ICD Code: E87.6 - HYPOKALEMIA Status: Acute Current Visit: Yes (5) Tobacco dependence syndrome SNOMED Code(s): 69045874 ICD Code: F17.200 - NICOTINE DEPENDENCE, UNSPECIFIED, UNCOMPLICATED Status : Chronic Current Visit: Yes - Patient Summary/Data Hospital Course: Nicky presented to the emergency room with progressive generalized abdominal pain as well as diarrhea and poor intake. Workup in the emergency room was suggestive of a viral gastroenteritis with nonspecific fluid retained in the colon. She had had nausea, recent vomiting as well as diarrhea. Laboratory studies were fairly unremarkable other than mild hypokalemia and mild dehydration. C-reactive protein was elevated at 11. Clostridium difficile testing was negative. CT scan of the abdomen and pelvis did not show other acute abnormalities. She was admitted to the hospital for hydration and symptomatic management. Overnight following admission there were no acute issues. Her diarrhea seems to have resolved. She does continue to have pain but it is a fair amount better today than yesterday. Stool culture was set up at the time of admission and was negative for enteric pathogens. There were no fecal leukocytes noted on the stool sample. She has not had any fevers. Her white count remains normal. Potassium is better with supplementation. I suspect she has a viral gastroenteritis though it is a little bit atypical. There are no other acute findings to suggest a different etiology at this time. I do not suspect bacterial infection. Patient is tolerating regular diet and pain is controlled with oral medications. I believe she is safe for outpatient management at this time. - Patient Instructions Diet: Regular Diet as Tolerated Diet, Other: soft and bland foods for 3-5 days Activity: As Tolerated Driving: Do Not Drive (if taking pain pills ) Showering/Bathing: May Shower Notify Provider of: Fever, Increased Pain, Nausea and/or Vomiting - Discharge Plan *PRESCRIPTION DRUG MONITORING PROGRAM REVIEWED*: Not Applicable *COPY OF PRESCRIPTION DRUG MONITORING REPORT IN PATIENT LUCIANO: Not Applicable Prescriptions/Med Rec: Lactobacillus Rhamnosus GG [Culturelle] 1 cap PO BID #30 cap oxyCODONE 10 mg PO Q4H #15 tablet Home Medications: Home Meds Baclofen 5 mg PO TID PRN 10/08/18 [History] Omeprazole 40 mg PO DAILY 10/08/18 [History] Oxybutynin 10 mg PO BID 10/08/18 [History] Prazosin HCl [Prazosin] 5 mg PO BEDTIME 10/08/18 [History] SUMAtriptan Succinate [Imitrex] 25 mg PO DAILY PRN 10/08/18 [History] Venlafaxine [Effexor] 150 mg PO BIDAC 10/08/18 [History] Amitriptyline [Elavil] 100 mg PO BEDTIME 01/01/19 [History] Ciprofloxacin HCl [Cipro] 250 mg PO BID 01/01/19 [History] Gabapentin [Neurontin] 300 mg PO ACLUNCH 01/01/19 [History] Gabapentin [Neurontin] 900 mg PO BIDAC 01/01/19 [History] Ondansetron [Zofran ODT] 4 mg PO Q6H PRN 01/01/19 [History] Topiramate [Topamax] 100 mg PO BID 01/01/19 [History] oxyCODONE 5 mg PO Q4HR 01/01/19 [History] Lactobacillus Rhamnosus GG [Culturelle] 1 cap PO BID #30 cap 01/02/19 [Rx] oxyCODONE 10 mg PO Q4H #15 tablet 01/02/19 [Rx] Oxygen Therapy Mode: Room Air Patient Handouts: Viral Gastroenteritis, Adult Referrals: Yordan King, MANAGER CLIENT SUPPORT [Primary Care Provider] - 01/12/19 10:30 am (Please arrive 15 minutes early to register for your appointment. PLEASE NOTE YOUR APPOINTMENT IS AT THE [facility].) - Discharge Summary/Plan Comment DC Time >30 min.: No - Patient Data Vitals - Most Recent: Last Vital Signs Temp 36.1 C 01/02/19 07:21 Pulse 73 01/02/19 07:21 Resp 18 01/02/19 07:21 BP 110/59 L 01/02/19 07:21 Pulse Ox 93 L 01/02/19 07:21 Orthostatic Blood Pressure [ 100/64 Standing] Orthostatic Blood Pressure [ 103/67 Sitting] Orthostatic Blood Pressure [ 77/44 Supine] Weight - Most Recent: 93 kg I&O - Last 24 hours: Intake & Output 01/01/19 01/02/19 01/02/19 22:59 06:59 14:59 Intake Total 100 1000 600 Output Total 400 550 Balance 100 600 50 Lab Results - Last 24 hrs: Laboratory Results - last 24 hr 01/01/19 01/01/19 01/01/19 Range/Units 11:38 11:38 11:38 WBC 9.1 (4.5-11.0) K/uL RBC 3.69 (3.30-5.50) M/uL Hgb 11.2 L (12.0-15.0) g/dL Hct 34.3 L (36.0-48.0) % MCV 93 (80-98) fL MCH 30 (27-31) pg MCHC 33 (32-36) % Plt Count 157 (150-400) K/uL Neut % (Auto) 72 H (36-66) % Lymph % (Auto) 16 L (24-44) % [place] % (Auto) 11 H (2-6) % Eos % (Auto) 2 (2-4) % Baso % (Auto) 0 (0-1) % Sodium 136 L (140-148) mmol/L Potassium 3.3 L (3.6-5.2) mmol/L Chloride 103 (100-108) mmol/L Carbon Dioxide 25 (21-32) mmol/L Anion Gap 11.3 (5.0-14.0) mmol/L BUN 3 L (7-18) mg/dL Creatinine 1.3 H (0.6-1.0) mg/dL Est Cr Clr Drug Dosing 53.32 mL/min Estimated GFR (MDRD) 46 L (>60) Glucose 104 (74-106) mg/dL Calcium 8.3 L (8.5-10.1) mg/dL Magnesium (1.8-2.4) mg/dL Total Bilirubin 0.5 (0.2-1.0) mg/dL AST 42 H (15-37) U/L ALT 35 (12-78) U/L Alkaline Phosphatase 108 (46-116) U/L C-Reactive Protein (0.0-0.3) mg/dL Total Protein 6.7 (6.4-8.2) g/dL Albumin 2.7 L (3.4-5.0) g/dL Globulin 4.0 H (2.3-3.5) g/dL Albumin/Globulin Ratio 0.7 L (1.2-2.2) Amylase 84 (25-115) U/L Lipase (73-393) U/L Urine Color (YELLOW) Urine Appearance (CLEAR) Urine pH (5.0-8.0) Ur Specific [place] (1.008-1.030) Urine Protein (NEGATIVE) mg/dL Urine Glucose (UA) (NEGATIVE) mg/dL Urine Ketones (NEGATIVE) mg/dL Urine Occult Blood (NEGATIVE) Urine Nitrite (NEGATIVE) Urine Bilirubin (NEGATIVE) Urine Urobilinogen (0.2-1.0) EU/dL Ur Leukocyte Esterase (NEGATIVE) Urine RBC (0-5) Urine WBC (0-5) Ur Epithelial Cells Amorphous Sediment Urine Bacteria Urine Mucus 01/01/19 01/01/19 01/01/19 Range/Units 11:38 11:50 12:16 WBC (4.5-11.0) K/uL RBC (3.30-5.50) M/uL Hgb (12.0-15.0) g/dL Hct (36.0-48.0) % MCV (80-98) fL MCH (27-31) pg MCHC (32-36) % Plt Count (150-400) K/uL Neut % (Auto) (36-66) % Lymph % (Auto) (24-44) % [place] % (Auto) (2-6) % Eos % (Auto) (2-4) % Baso % (Auto) (0-1) % Sodium (140-148) mmol/L Potassium (3.6-5.2) mmol/L Chloride (100-108) mmol/L Carbon Dioxide (21-32) mmol/L Anion Gap (5.0-14.0) mmol/L BUN (7-18) mg/dL Creatinine (0.6-1.0) mg/dL Est Cr Clr Drug Dosing mL/min Estimated GFR (MDRD) (>60) Glucose (74-106) mg/dL Calcium (8.5-10.1) mg/dL Magnesium (1.8-2.4) mg/dL Total Bilirubin (0.2-1.0) mg/dL AST (15-37) U/L ALT (12-78) U/L Alkaline Phosphatase (46-116) U/L C-Reactive Protein 11.33 H (0.0-0.3) mg/dL Total Protein (6.4-8.2) g/dL Albumin (3.4-5.0) g/dL Globulin (2.3-3.5) g/dL Albumin/Globulin Ratio (1.2-2.2) Amylase (25-115) U/L Lipase 300 (73-393) U/L Urine Color Yellow (YELLOW) Urine Appearance Slightly cloudy A (CLEAR) Urine pH 6.0 (5.0-8.0) Ur Specific [place] 1.010 (1.008-1.030) Urine Protein Negative (NEGATIVE) mg/dL Urine Glucose (UA) Negative (NEGATIVE) mg/dL Urine Ketones Negative (NEGATIVE) mg/dL Urine Occult Blood Trace-intact H (NEGATIVE) Urine Nitrite Negative (NEGATIVE) Urine Bilirubin Negative (NEGATIVE) Urine Urobilinogen 0.2 (0.2-1.0) EU/dL Ur Leukocyte Esterase Negative (NEGATIVE) Urine RBC 0-5 (0-5) Urine WBC 0-5 (0-5) Ur Epithelial Cells Moderate Amorphous Sediment Not seen Urine Bacteria Moderate Urine Mucus Not seen 01/01/19 01/02/19 01/02/19 Range/Units 17:51 05:05 05:05 WBC 7.6 (4.5-11.0) K/uL RBC 3.31 (3.30-5.50) M/uL Hgb 10.0 L (12.0-15.0) g/dL Hct 31.4 L (36.0-48.0) % MCV 95 (80-98) fL MCH 30 (27-31) pg MCHC 32 (32-36) % Plt Count 140 L (150-400) K/uL Neut % (Auto) (36-66) % Lymph % (Auto) (24-44) % [place] % (Auto) (2-6) % Eos % (Auto) (2-4) % Baso % (Auto) (0-1) % Sodium 138 L (140-148) mmol/L Potassium 4.3 (3.6-5.2) mmol/L Chloride 109 H (100-108) mmol/L Carbon Dioxide 21 (21-32) mmol/L Anion Gap 12.3 (5.0-14.0) mmol/L BUN 3 L (7-18) mg/dL Creatinine 1.0 (0.6-1.0) mg/dL Est Cr Clr Drug Dosing 69.31 mL/min Estimated GFR (MDRD) > 60 (>60) Glucose 161 H (74-106) mg/dL Calcium 7.9 L (8.5-10.1) mg/dL Magnesium 1.9 (1.8-2.4) mg/dL Total Bilirubin 0.2 D (0.2-1.0) mg/dL AST 31 (15-37) U/L ALT 27 (12-78) U/L Alkaline Phosphatase 96 (46-116) U/L C-Reactive Protein (0.0-0.3) mg/dL Total Protein 6.3 L (6.4-8.2) g/dL Albumin 2.4 L (3.4-5.0) g/dL Globulin 3.9 H (2.3-3.5) g/dL Albumin/Globulin Ratio 0.6 L (1.2-2.2) Amylase (25-115) U/L Lipase (73-393) U/L Urine Color (YELLOW) Urine Appearance (CLEAR) Urine pH (5.0-8.0) Ur Specific [place] (1.008-1.030) Urine Protein (NEGATIVE) mg/dL Urine Glucose (UA) (NEGATIVE) mg/dL Urine Ketones (NEGATIVE) mg/dL Urine Occult Blood (NEGATIVE) Urine Nitrite (NEGATIVE) Urine Bilirubin (NEGATIVE) Urine Urobilinogen (0.2-1.0) EU/dL Ur Leukocyte Esterase (NEGATIVE) Urine RBC (0-5) Urine WBC (0-5) Ur Epithelial Cells Amorphous Sediment Urine Bacteria Urine Mucus JUANITA Results - Last 24 hrs: Microbiology 01/01/19 16:04 Shiga Toxin I - Final Stool / Feces NEGATIVE FOR SHIGA TOXIN 1 Shiga Toxin II - Final NEGATIVE FOR SHIGA TOXIN 2 REFERENCE RANGE: NEGATIVE 01/01/19 16:09 Stool for WBCs - Final Stool / Feces NO WBC SEEN REFERENCE RANGE: NO WBC SEEN 01/01/19 14:54 Clostridioides difficile (PCR) - Final Stool / Feces NEGATIVE CDIFF TOXIN Med Orders - Current: Current Medications Acetaminophen (Tylenol) 650 mg PO Q4H PRN PRN Reason: Pain (Mild 1-3)/fever Last Admin: 01/02/19 07:30 Dose: 650 mg Amitriptyline HCl (Elavil) 100 mg PO BEDTIME [facility] Last Admin: 01/01/19 21:23 Dose: 100 mg Baclofen (Lioresal) 5 mg PO TID PRN PRN Reason: MUSCLE SPASMS Last Admin: 01/01/19 21:23 Dose: 5 mg Gabapentin (Neurontin) 300 mg PO ACLUNCH [facility] Last Admin: 01/02/19 10:52 Dose: 300 mg Gabapentin (Neurontin) 900 mg PO BIDAC [facility] Last Admin: 01/02/19 07:35 Dose: 900 mg Hydromorphone HCl (Dilaudid) 1 mg IVPUSH Q2H PRN PRN Reason: Pain (severe 7-10) Last Admin: 01/02/19 08:53 Dose: 1 mg Hyoscyamine (Hyomax-Sl) 0.125 mg SL Q4H PRN PRN Reason: crampy abdominal pain Potassium Chloride/Sodium Chloride (Normal Saline With 20 Meq Kcl) 1,000 mls @ 100 mls/hr IV ASDIRECTED [facility] Last Admin: 01/02/19 04:20 Dose: 100 mls/hr Lactobacillus Rhamnosus (Culturelle) 1 cap PO BID [facility] Last Admin: 01/02/19 08:45 Dose: 1 cap Lorazepam (Ativan) 0.5 mg IVPUSH Q4H PRN PRN Reason: Nausea/Vomiting Nicotine (Habitrol) 14 mg TRDERM DAILY PRN PRN Reason: nicotine craving Last Admin: 01/01/19 18:22 Dose: 14 mg Ondansetron HCl (Zofran Odt) 4 mg PO Q6H PRN PRN Reason: Nausea able to take PO Ondansetron HCl (Zofran) 4 mg IV Q6H PRN PRN Reason: Nausea/Vomiting Oxybutynin Chloride (Oxybutynin) 10 mg PO BID [facility] Last Admin: 01/02/19 08:46 Dose: 10 mg Oxycodone HCl (Oxycodone) 5 mg PO Q4H PRN PRN Reason: Pain (moderate 4-6) Last Admin: 01/02/19 07:28 Dose: 5 mg Pantoprazole Sodium (Protonix) 40 mg PO ACBREAKFAST [facility] Last Admin: 01/02/19 07:35 Dose: 40 mg Prazosin HCl (Minpress) 5 mg PO BEDTIME [facility] Last Admin: 01/01/19 21:31 Dose: 5 mg Sodium Chloride (Saline Flush) 10 ml FLUSH ASDIRECTED PRN PRN Reason: Keep Vein Open Last Admin: 01/01/19 13:03 Dose: 10 ml Venlafaxine HCl (Effexor) 150 mg PO BID [facility] Last Admin: 01/02/19 08:46 Dose: 150 mg Discontinued Medications Hydromorphone HCl (Dilaudid) 0.5 mg IVPUSH ONETIME ONE Stop: 01/01/19 12:03 Last Admin: 01/01/19 12:26 Dose: 0.5 mg Hydromorphone HCl (Dilaudid) 0.5 mg IVPUSH ONETIME ONE Stop: 01/01/19 13:43 Last Admin: 01/01/19 13:56 Dose: 0.5 mg Hydromorphone HCl (Dilaudid) 1 mg IVPUSH ONETIME ONE Stop: 01/01/19 16:08 Last Admin: 01/01/19 16:40 Dose: 1 mg Sodium Chloride (Normal Saline) 1,000 mls @ 999 mls/hr IV ASDIRECTED [facility] Last Infusion: 01/01/19 13:28 Dose: Infused Sodium Chloride (Normal Saline) 84 mls @ 0 mls/hr IV ASDIRECTED [facility] Last Admin: 01/01/19 13:03 Dose: 3.5 mls/hr Sodium Chloride (Normal Saline) 1,000 mls @ 999 mls/hr IV ASDIRECTED [facility] Last Admin: 01/01/19 13:54 Dose: 999 mls/hr Potassium Chloride 20 meq/Lidocaine HCl 2 ml/ Sodium Chloride 112 mls @ 50 mls/ hr IV Q2H [facility] Stop: 01/01/19 21:50 Last Admin: 01/01/19 18:37 Dose: Not Given Potassium Chloride 20 meq/ (Premix) 100 mls @ 50 mls/hr IV Q2H [facility] Stop: 01/01/19 22:59 Last Admin: 01/01/19 23:21 Dose: 50 mls/hr Iopamidol (Isovue-300 (61%)) 140 ml IV . DIRECTED [facility] Stop: 01/01/19 13:00 Last Admin: 01/01/19 12:54 Dose: 140 ml Lidocaine HCl (Xylocaine-Mpf 1%) 2 ml IV Q2H [facility] Stop: 01/01/19 21:01 Last Admin: 01/01/19 23:21 Dose: 2 ml Lidocaine HCl (Xylocaine-Mpf 1%) Confirm Administered Dose 5 ml .ROUTE .STK-MED ONE Stop: 01/01/19 22:58 Last Admin: 01/01/19 23:27 Dose: Not Given Methylprednisolone Sodium Succinate (Solu-Medrol) 125 mg IVPUSH ONETIME ONE Stop: 01/01/19 16:39 Last Admin: 01/01/19 17:43 Dose: 125 mg Ondansetron HCl (Zofran) 4 mg IVPUSH ONETIME ONE Stop: 01/01/19 13:43 Last Admin: 01/01/19 13:55 Dose: 4 mg Sodium Chloride (Saline Flush) 10 ml FLUSH ONETIME ONE Stop: 01/01/19 12:26 Last Admin: 01/01/19 13:02 Dose: 10 ml Venlafaxine HCl (Effexor) 150 mg PO BIDAC [facility] - Exam Quality Assessment: Denies: Supplemental Oxygen General: Reports: Alert, Oriented, Cooperative, No Acute Distress Lungs: Reports: Normal Respiratory Effort GI/Abdominal Exam: Soft, No Distention, Tender Extremities: No Pedal Edema Psy/Mental Status: Reports: Alert, Normal Affect
== END 2019-01-02 12:50 | disposition home or self-care (01) ==
LOC: JP.ED 11:08 → JP.MS 16:40
PROVIDERS: ADMIT Internal Medicine; ATTEND Internal Medicine
DX: R10.84 Generalized abdominal pain (principal); R19.7 Diarrhea, unspecified; E87.6 Hypokalemia; E86.0 Dehydration; F17.210 Nicotine dependence, cigarettes, uncomplicated; Z79.899 Other long term (current) drug therapy
CPT/HCPCS: 36415; 74177; 80053; 81001; 82150; 83690; 83735; 85025; 85027; 86140; 87046; 87086; 87493; 87899; 89055; 96361; 96374; 96376; 99285; A9270; J1170; J2001; J2405; J2930; J3480; J7030; 99284

== ENCOUNTER 2019-01-03 12:38 | Emergency (ER) | payer MEDICAID ==
[2019-01-03] MEDS ORDERED: Sodium Chloride 0.9% 10 ML Syringe FLUSH PRN (13:11)
[2019-01-03] MEDS ORDERED: Lactated Ringers 1,000 ML IV ONE (13:11)
[2019-01-03] MEDS ORDERED: Albuterol/Ipratropium 3.0-0.5 MG/3 ML Neb Soln NEB ONE (13:13)
--- NOTE | 2019-01-03 13:16 | EDM.PDOC ---
ED HPI GENERAL MEDICAL PROBLEM - General Chief Complaint: Respiratory Problem Stated Complaint: SOB Time Seen by Provider: 01/03/19 12:53 Source of Information: Reports: Patient, Family, Old Records, RN Notes Reviewed History Limitations: Reports: Respiratory Distress - History of Present Illness INITIAL COMMENTS - FREE TEXT/NARRATIVE: 38-year-old female presents emergency department today with complaint of shortness of breath and being lethargic. She was admitted the hospital 2 weeks ago for pancreatitis in [place]. Was admitted 2 days prior at this facility for presumed viral gastroenteritis and abdominal pain associated with that. Was just discharged yesterday. Family members state over the last 24 hours has become progressively more short of breath and lethargic difficult to obtain review of systems from the patient due to her respiratory status. No vaping history - Related Data Allergies Allergy/AdvReac Type Severity Reaction Status Date / Time No Known Allergies Allergy Verified 01/03/19 12:50 Home Meds: Home Meds Baclofen 5 mg PO TID PRN 10/08/18 [History] Omeprazole 40 mg PO DAILY 10/08/18 [History] Oxybutynin 10 mg PO BID 10/08/18 [History] Prazosin HCl [Prazosin] 5 mg PO BEDTIME 10/08/18 [History] SUMAtriptan Succinate [Imitrex] 25 mg PO DAILY PRN 10/08/18 [History] Venlafaxine [Effexor] 150 mg PO BIDAC 10/08/18 [History] Amitriptyline [Elavil] 100 mg PO BEDTIME 01/01/19 [History] Ciprofloxacin HCl [Cipro] 250 mg PO BID 01/01/19 [History] Gabapentin [Neurontin] 300 mg PO ACLUNCH 01/01/19 [History] Gabapentin [Neurontin] 900 mg PO BIDAC 01/01/19 [History] Ondansetron [Zofran ODT] 4 mg PO Q6H PRN 01/01/19 [History] Topiramate [Topamax] 100 mg PO BID 01/01/19 [History] oxyCODONE 5 mg PO Q4HR 01/01/19 [History] oxyCODONE 10 mg PO Q4H #15 tablet 01/02/19 [Rx] Past Medical History HEENT History: Reports: Impaired Vision Cardiovascular History: Reports: Hypertension Gastrointestinal History: Reports: GERD, Pancreatitis Genitourinary History: Reports: Other (See Below) Other Genitourinary History: bladder spasms KNOT BORER History: Reports: Endometriosis, Musculoskeletal History: Reports: Other (See Below) Other Musculoskeletal History: herniated disk Neurological History: Reports: Migraines Psychiatric History: Reports: ADHD, Anxiety, Bipolar, PTSD Endocrine/Metabolic History: Reports: Obesity/BMI 30+ Oncologic (Cancer) History: Reports: Cervix - Past Surgical History Head Surgeries/Procedures: Reports: None Cardiovascular Surgical History: Reports: None GI Surgical History: Reports: Cholecystectomy Female Surgical History: Reports: Other (See Below) Other Female Surgeries/Procedures: right overy removed Endocrine Surgical History: Reports: None Neurological Surgical History: Reports: None Musculoskeletal Surgical History: Reports: None Oncologic Surgical History: Reports: None Dermatological Surgical History: Reports: None Social & Family History - Family History GI: Reports: Irritable Bowel Syndrome - Tobacco Use Smoking Status *Q: Current Every Day Smoker Years of Tobacco use: 20 Packs/Tins Daily: 1 - Caffeine Use Caffeine Use: Reports: Coffee, Soda ED ROS GENERAL - Review of Systems Review Of Systems: See Below Constitutional: Reports: Fatigue. Denies: Fever, Chills HEENT: Reports: No Symptoms Respiratory: Reports: Shortness of Breath, Cough (Dry). Denies: Sputum Cardiovascular: Reports: Dyspnea on Exertion GI/Abdominal: Reports: No Symptoms : Reports: No Symptoms ED EXAM, GENERAL - Physical Exam Exam: See Below Exam Limited By: Respiratory Distress General Appearance: Lethargic Neck: Normal Inspection, Supple, Non-Tender, Full Range of Motion Respiratory/Chest: Respiratory Distress, Decreased Breath Sounds Cardiovascular: No Murmur, Tachycardia GI/Abdominal: Soft, Non-Tender Extremities: Normal Inspection, Non-Tender, No Pedal Edema Course - Vital Signs Last Recorded V/S: Last Vital Signs Temp 98.2 F 01/03/19 16:04 Pulse 90 01/03/19 16:04 Resp 43 H 01/03/19 16:04 BP 100/66 01/03/19 16:04 Pulse Ox 65 L 01/03/19 16:04 - Orders/Labs/Meds Orders: Active Orders 24 hr Category Date Time Status EKG Documentation Completion [RC] ASDIRECTED Care 01/03/19 13:57 Active Peripheral IV Care [RC] . DIRECTED Care 01/03/19 13:11 Active RT Aerosol Therapy [RC] ASDIRECTED Care 01/03/19 13:13 Active Iopamidol [Isovue-370 (76%)] Med 01/03/19 14:45 Active 100 ml IV . DIRECTED Lactated Ringers [Ringers, Lactated] 1,000 ml Med 01/03/19 13:11 Active IV ASDIRECTED Sodium Chloride 0.9% [Normal Saline] 100 ml Med 01/03/19 14:45 Active IV ASDIRECTED Sodium Chloride 0.9% [Saline Flush] Med 01/03/19 13:11 Active 10 ml FLUSH ASDIRECTED PRN Peripheral IV Insertion Adult [OM.PC] Urgent Oth 01/03/19 13:11 Ordered EKG 12 Lead [EK] Stat Ther 01/03/19 13:57 Ordered Medication Orders Lactated Ringer's (Ringers, Lactated) 1,000 mls @ 250 mls/hr IV ASDIRECTED ONE Stop: 01/03/19 17:10 Last Admin: 01/03/19 13:29 Dose: 250 mls/hr Sodium Chloride (Normal Saline) 100 mls @ 3 mls/sec IV ASDIRECTED RICH Last Admin: 01/03/19 15:34 Dose: 3 mls/sec Iopamidol (Isovue-370 (76%)) 100 ml IV . DIRECTED RICH Last Admin: 01/03/19 15:34 Dose: 100 ml Sodium Chloride (Saline Flush) 10 ml FLUSH ASDIRECTED PRN PRN Reason: Keep Vein Open Last Admin: 01/03/19 15:34 Dose: 10 ml Labs: Laboratory Tests 01/03/19 01/03/19 01/03/19 Range/Units 13:11 13:27 13:27 WBC 10.3 (4.5-11.0) K/uL RBC 3.27 L (3.30-5.50) M/uL Hgb 9.8 L (12.0-15.0) g/dL Hct 30.8 L (36.0-48.0) % MCV 94 (80-98) fL MCH 30 (27-31) pg MCHC 32 (32-36) % Plt Count 215 (150-400) K/uL Neut % (Auto) 85 H (36-66) % Lymph % (Auto) 6 L (24-44) % Todd % (Auto) 9 H (2-6) % Eos % (Auto) 0 L (2-4) % Baso % (Auto) 0 (0-1) % D-Dimer, Quantitative 826 H (0.0-400.0) ng/mL Puncture Site Rt radial ABG pH 7.424 (7.350-7.450) ABG pCO2 32.2 L (35.0-42.0) mmHg ABG pO2 62.7 L (75.0-100.0) mmHg ABG HCO3 20.6 L (22.0-26.0) mmol/L ABG Total CO2 19.1 L (21.0-25.0) mmol/L ABG O2 Saturation 92.7 L (95.0-98.0) % ABG O2 Content 12.6 L (15.0-23.0) %vol ABG Base Excess -2.7 mm/L ABG Hemoglobin 10.0 L (12.0-16.0) g/dL ABG Oxyhemoglobin 88.9 % ABG Carboxyhemoglobin 3.4 H (0.0-1.6) % ABG Methemoglobin 0.7 % Oc Test Passed O2 Delivery Device Room air Oxygen Flow Rate L Sodium (140-148) mmol/L Potassium (3.6-5.2) mmol/L Chloride (100-108) mmol/L Carbon Dioxide (21-32) mmol/L Anion Gap (5.0-14.0) mmol/L BUN (7-18) mg/dL Creatinine (0.6-1.0) mg/dL Est Cr Clr Drug Dosing mL/min Estimated GFR (MDRD) (>60) Glucose (74-106) mg/dL Calcium (8.5-10.1) mg/dL Troponin I (0.000-0.056) ng/mL Urine Color (YELLOW) Urine Appearance (CLEAR) Urine pH (5.0-8.0) Ur Specific Humphreys (1.008-1.030) Urine Protein (NEGATIVE) mg/dL Urine Glucose (UA) (NEGATIVE) mg/dL Urine Ketones (NEGATIVE) mg/dL Urine Occult Blood (NEGATIVE) Urine Nitrite (NEGATIVE) Urine Bilirubin (NEGATIVE) Urine Urobilinogen (0.2-1.0) EU/dL Ur Leukocyte Esterase (NEGATIVE) Urine RBC (0-5) Urine WBC (0-5) Ur Epithelial Cells Amorphous Sediment Urine Bacteria Urine Mucus Urine Opiates Screen (NEGATIVE) Ur Oxycodone Screen (NEGATIVE) Urine Methadone Screen (NEGATIVE) Ur Propoxyphene Screen (NEGATIVE) Ur Barbiturates Screen (NEGATIVE) Ur Tricyclics Screen (NEGATIVE) Ur Phencyclidine Scrn (NEGATIVE) Ur Amphetamine Screen (NEGATIVE) U Methamphetamines Scrn (NEGATIVE) Urine MDMA Screen (NEGATIVE) U Benzodiazepines Scrn (NEGATIVE) U Cocaine Metab Screen (NEGATIVE) U Marijuana (THC) Screen (NEGATIVE) 01/03/19 01/03/19 01/03/19 Range/Units 13:27 14:51 14:51 WBC (4.5-11.0) K/uL RBC (3.30-5.50) M/uL Hgb (12.0-15.0) g/dL Hct (36.0-48.0) % MCV (80-98) fL MCH (27-31) pg MCHC (32-36) % Plt Count (150-400) K/uL Neut % (Auto) (36-66) % Lymph % (Auto) (24-44) % Todd % (Auto) (2-6) % Eos % (Auto) (2-4) % Baso % (Auto) (0-1) % D-Dimer, Quantitative (0.0-400.0) ng/mL Puncture Site ABG pH (7.350-7.450) ABG pCO2 (35.0-42.0) mmHg ABG pO2 (75.0-100.0) mmHg ABG HCO3 (22.0-26.0) mmol/L ABG Total CO2 (21.0-25.0) mmol/L ABG O2 Saturation (95.0-98.0) % ABG O2 Content (15.0-23.0) %vol ABG Base Excess mm/L ABG Hemoglobin (12.0-16.0) g/dL ABG Oxyhemoglobin % ABG Carboxyhemoglobin (0.0-1.6) % ABG Methemoglobin % Oc Test O2 Delivery Device Oxygen Flow Rate L Sodium 140 (140-148) mmol/L Potassium 3.9 (3.6-5.2) mmol/L Chloride 108 (100-108) mmol/L Carbon Dioxide 22 (21-32) mmol/L Anion Gap 10.3 (5.0-14.0) mmol/L BUN 4 L (7-18) mg/dL Creatinine 1.1 H (0.6-1.0) mg/dL Est Cr Clr Drug Dosing 63.01 mL/min Estimated GFR (MDRD) 56 L (>60) Glucose 115 H (74-106) mg/dL Calcium 7.8 L (8.5-10.1) mg/dL Troponin I 0.133 H* (0.000-0.056) ng/mL Urine Color Yellow (YELLOW) Urine Appearance Clear (CLEAR) Urine pH 5.5 (5.0-8.0) Ur Specific Humphreys 1.020 (1.008-1.030) Urine Protein Negative (NEGATIVE) mg/dL Urine Glucose (UA) Negative (NEGATIVE) mg/dL Urine Ketones Negative (NEGATIVE) mg/dL Urine Occult Blood Moderate H (NEGATIVE) Urine Nitrite Negative (NEGATIVE) Urine Bilirubin Negative (NEGATIVE) Urine Urobilinogen 0.2 (0.2-1.0) EU/dL Ur Leukocyte Esterase Negative (NEGATIVE) Urine RBC Not seen (0-5) Urine WBC Not seen (0-5) Ur Epithelial Cells Moderate Amorphous Sediment Not seen Urine Bacteria Few Urine Mucus Few Urine Opiates Screen Presumptive positive H (NEGATIVE) Ur Oxycodone Screen Presumptive positive H (NEGATIVE) Urine Methadone Screen Negative (NEGATIVE) Ur Propoxyphene Screen Negative (NEGATIVE) Ur Barbiturates Screen Negative (NEGATIVE) Ur Tricyclics Screen Presumptive positive H (NEGATIVE) Ur Phencyclidine Scrn Negative (NEGATIVE) Ur Amphetamine Screen Presumptive positive H (NEGATIVE) U Methamphetamines Scrn Negative (NEGATIVE) Urine MDMA Screen Negative (NEGATIVE) U Benzodiazepines Scrn Negative (NEGATIVE) U Cocaine Metab Screen Negative (NEGATIVE) U Marijuana (THC) Screen Negative (NEGATIVE) Meds: Medications Generic Name Dose Route Start Last Admin Trade Name Freq PRN Reason Stop Dose Admin Lactated Ringer's 1,000 mls @ 250 mls/hr 01/03/19 13:11 01/03/19 13:29 Ringers, Lactated IV 01/03/19 17:10 250 mls/hr ASDIRECTED ONE Administration Sodium Chloride 100 mls @ 3 mls/sec 01/03/19 14:45 01/03/19 15:34 Normal Saline IV 3 mls/sec ASDIRECTED RICH Administration Iopamidol 100 ml 01/03/19 14:45 01/03/19 15:34 Isovue-370 (76%) IV 100 ml . DIRECTED RICH Administration Sodium Chloride 10 ml 01/03/19 13:11 01/03/19 15:34 Saline Flush FLUSH 10 ml ASDIRECTED PRN Administration Keep Vein Open Discontinued Medications Generic Name Dose Route Start Last Admin Trade Name Viridiana PRN Reason Stop Dose Admin Albuterol/Ipratropium 3 ml 01/03/19 13:13 01/03/19 13:28 Duoneb 3.0-0.5 Mg/3 Ml NEB 01/03/19 13:14 3 ml ONETIME ONE Administration Morphine Sulfate 4 mg 01/03/19 14:16 01/03/19 14:28 Morphine IVPUSH 01/03/19 14:17 4 mg ONETIME ONE Administration Morphine Sulfate 4 mg 01/03/19 16:13 Morphine IVPUSH 01/03/19 16:14 ONETIME ONE Sodium Chloride 10 ml 01/03/19 14:34 Saline Flush FLUSH 01/03/19 14:35 ONETIME ONE Departure - Departure Time of Disposition: 16:24 Disposition: DC/Tfer to Acute Hospital 02 Condition: Poor Clinical Impression: ARDS (adult respiratory distress syndrome) Respiratory failure Qualifiers: Chronicity: acute Respiratory failure complication: hypoxia Qualified Code(s): J96.01 - Acute respiratory failure with hypoxia - Discharge Information Referrals: PCP,None [Primary Care Provider] - Forms: ED Department Discharge - My Orders Last 24 Hours: My Active Orders 01/03/19 13:11 Peripheral IV Care [RC] . DIRECTED Lactated Ringers [Ringers, Lactated] 1,000 ml IV ASDIRECTED Sodium Chloride 0.9% [Saline Flush] 10 ml FLUSH ASDIRECTED PRN Peripheral IV Insertion Adult [OM.PC] Urgent 01/03/19 13:13 RT Aerosol Therapy [RC] ASDIRECTED 01/03/19 13:57 EKG Documentation Completion [RC] ASDIRECTED EKG 12 Lead [EK] Stat 01/03/19 14:45 Iopamidol [Isovue-370 (76%)] 100 ml IV . DIRECTED Sodium Chloride 0.9% [Normal Saline] 100 ml IV ASDIRECTED - Assessment/Plan Last 24 Hours: My Active Orders 01/03/19 13:11 Peripheral IV Care [RC] . DIRECTED Lactated Ringers [Ringers, Lactated] 1,000 ml IV ASDIRECTED Sodium Chloride 0.9% [Saline Flush] 10 ml FLUSH ASDIRECTED PRN Peripheral IV Insertion Adult [OM.PC] Urgent 01/03/19 13:13 RT Aerosol Therapy [RC] ASDIRECTED 01/03/19 13:57 EKG Documentation Completion [RC] ASDIRECTED EKG 12 Lead [EK] Stat 01/03/19 14:45 Iopamidol [Isovue-370 (76%)] 100 ml IV . DIRECTED Sodium Chloride 0.9% [Normal Saline] 100 ml IV ASDIRECTED Plan: Assessment Acuity = acute Site and laterality = pending respiratory failure currently on BiPAP complicating the patient with known history of recent pancreatitis as well as gastroenteritis with 2 hospitalizations Etiology = unknown etiology concern for development of ARDS Manifestations = hypoxic, tachypnea Location of injury = Home Lab values = hemoglobin low at 9.8 consistent normochromic anemia d-dimer elevated 826 ABG reveals pH 7.42 PCO2 32.2 PO2 62.7 and a bicarbonate of 20.6 consistent with metabolic acidosis, creatinine elevated 1.1 consistent with acute renal failure stage GII troponin elevated 0.133 probably related to right heart strain urinalysis negative urine drug screen positive for opiates tricyclics and amphetamine, chest x-ray reveals ARDS pattern CT scan reveals no pulmonary embolism EKG is normal sinus rhythm Plan Called discussed case with Dr. Anna emergency room physician at [facility] [id number] also reviewed the case with Dr. Okeefe lamps tester and inspector recommended trying BiPAP and then transfer to their facility, we are unable to fly today due to weather so she'll be be transported via EMS ground. My critical care time 20 minutes This note was dictated using H?REL voice recognition software please call with any questions on syntax or grammar.
--- NOTE | 2019-01-03 14:01 | CRLCR ---
INDICATION: Shortness of breath TECHNIQUE: Chest 1 view. COMPARISON: CT abdomen and pelvis 01/01/2019 FINDINGS: There are extensive bilateral patchy airspace opacities and consolidations throughout both lungs. The right costophrenic angle appears sharp. Is difficult to visualize the left costophrenic angle and this could represent a small left pleural effusion. The heart appears at the upper limits of normal in size which may be in part due to technique. The visualized osseous structures are unremarkable. IMPRESSION: Bilateral airspace opacities and consolidations, may represent pulmonary edema, multifocal pneumonia or ARDS. Dictated by: Gladys Archuleta MD @ 01/03/2019 14:00:47 (Electronically Signed)
[2019-01-03] MEDS ORDERED: Morphine 4 MG/ML Syringe IVPUSH ONE ×2 (14:16→16:13)
[2019-01-03] MEDS ORDERED: Sodium Chloride 0.9% 10 ML Syringe FLUSH ONE (14:34)
[2019-01-03] MEDS ORDERED: Sodium Chloride 0.9% 100 ML IV SCH (14:45)
[2019-01-03] MEDS ORDERED: Iopamidol 755 Mg/ML 100 ML Bottle IV SCH (14:45)
--- NOTE | 2019-01-03 15:54 | CRLCT ---
INDICATION: Hypoxia. TECHNIQUE: 2 mm axial imaging has been performed through the chest. Sagittal and coronal reconstructions have been obtained. FINDINGS: Soft tissue windows demonstrate small mediastinal lymph nodes without significant lymphadenopathy. There are extensive bilateral airspace infiltrates. These are centered in the perihilar region with areas of consolidation throughout the lungs bilaterally. Less involvement in the lung bases noted. There are small bilateral pleural fluid collections. Trace amount of pericardial fluid noted. No filling defects to secondary branch vessels are identified to suggest pulmonary emboli. No pneumothorax is seen. Upper abdomen demonstrates postsurgical changes from left nephrectomy which has been partially imaged. There is a small nodule adjacent to the spleen which is likely a splenule. Remaining upper abdomen is unremarkable. IMPRESSION: 1. Diffuse bilateral airspace infiltrates. 2. No visualized pulmonary emboli to secondary branch vessels. 3. Small bilateral pleural fluid collections noted. Please note that all CT scans at this facility use dose modulation, iterative reconstruction, and/or weight-based dosing when appropriate to reduce radiation dose to as low as reasonably achievable. Dictated by Alexis Hugo MD @ Jan 03 2019 3:48PM Signed by Dr. Alexis Hugo @ Jan 03 2019 3:53PM
[2019-01-03] MEDS ORDERED: LORazepam 2 MG/ML SDV IVPUSH ONE (16:32)
== END 2019-01-03 18:07 ==
LOC: JP.ED 12:38
DX: J96.01 Acute respiratory failure with hypoxia (principal); I10 Essential (primary) hypertension; E66.9 Obesity, unspecified; Z68.32 Body mass index [BMI] 32.0-32.9, adult
CPT/HCPCS: 36415; 36600; 71045; 71275; 80048; 80305; 81001; 82803; 84484; 85025; 85379; 93005; 94640; 94660; 96361; 96374; 96375; 96376; 99285; J2060; J2270; J7030; J7120; Q9967; J7620-GY

== ENCOUNTER 2019-04-05 16:38 | Emergency (ER) | payer MEDICAID ==
[2019-04-05] MEDS ORDERED: Lactated Ringers 1,000 ML IV SCH (17:30)
[2019-04-05] MEDS ORDERED: Sodium Chloride 0.9% 10 ML Syringe FLUSH PRN (17:30)
[2019-04-05] MEDS ORDERED: fentaNYL 100 MCG/2 ML SDV IVPUSH ONE (17:31)
[2019-04-05] MEDS ORDERED: Ondansetron 4 MG/2 ML SDV IVPUSH ONE (17:31)
--- NOTE | 2019-04-05 17:34 | EDM.PDOC ---
ED HPI GENERAL MEDICAL PROBLEM - General Chief Complaint: Abdominal Pain Stated Complaint: RT SIDE ABDOMINAL PAIN Time Seen by Provider: 04/05/19 17:27 Source of Information: Reports: Patient, Family, RN Notes Reviewed History Limitations: Reports: No Limitations - History of Present Illness INITIAL COMMENTS - FREE TEXT/NARRATIVE: 39-year-old female presents emergency department a complaint of abdominal pain, she states the pain has developed over the last 24 hours initially was standing in the center of her abdomen but now is migrated down to the right lower quadrant she has urinary frequency and does get some relief after urination she feels nauseated no vomiting no problems with bowel movements no shortness of breath or chest pain no history of abdominal surgeries Right Middle Abdomen Pain Score (Numeric/FACES): 8 - Related Data Allergies Allergy/AdvReac Type Severity Reaction Status Date / Time No Known Allergies Allergy Verified 01/03/19 12:50 Home Meds: Home Meds Baclofen 5 mg PO TID PRN 10/08/18 [History] Omeprazole 40 mg PO DAILY 10/08/18 [History] Oxybutynin 10 mg PO BID 10/08/18 [History] Prazosin HCl [Prazosin] 5 mg PO BEDTIME 10/08/18 [History] SUMAtriptan Succinate [Imitrex] 25 mg PO DAILY PRN 10/08/18 [History] Amitriptyline [Elavil] 100 mg PO BEDTIME 01/01/19 [History] Gabapentin [Neurontin] 900 mg PO QID 01/01/19 [History] Topiramate [Topamax] 100 mg PO BID 01/01/19 [History] Lisdexamfetamine [Vyvanse] 30 mg PO DAILY 04/05/19 [History] QUEtiapine [SEROquel] 100 - 200 mg PO ASDIRECTED 04/05/19 [History] Past Medical History HEENT History: Reports: Impaired Vision Cardiovascular History: Reports: Hypertension Gastrointestinal History: Reports: GERD, Pancreatitis Genitourinary History: Reports: Other (See Below) Other Genitourinary History: bladder spasms [employer] History: Reports: Endometriosis, Musculoskeletal History: Reports: Other (See Below) Other Musculoskeletal History: herniated disk Neurological History: Reports: Migraines Psychiatric History: Reports: ADHD, Anxiety, Bipolar, PTSD Endocrine/Metabolic History: Reports: Obesity/BMI 30+ Oncologic (Cancer) History: Reports: Cervix - Infectious Disease History Infectious Disease History: Reports: Chicken Pox - Past Surgical History Head Surgeries/Procedures: Reports: None Cardiovascular Surgical History: Reports: None GI Surgical History: Reports: Cholecystectomy Female Surgical History: Reports: Other (See Below) Other Female Surgeries/Procedures: right overy removed Endocrine Surgical History: Reports: None Neurological Surgical History: Reports: None Musculoskeletal Surgical History: Reports: None Oncologic Surgical History: Reports: None Dermatological Surgical History: Reports: None Social & Family History - Family History GI: Reports: Irritable Bowel Syndrome - Tobacco Use Smoking Status *Q: Current Every Day Smoker Years of Tobacco use: 25 Packs/Tins Daily: 1 - Caffeine Use Caffeine Use: Reports: Coffee, Soda - Recreational Drug Use Recreational Drug Use: No ED ROS GENERAL - Review of Systems Review Of Systems: See Below Constitutional: Denies: Fever HEENT: Reports: No Symptoms Respiratory: Reports: No Symptoms Cardiovascular: Reports: No Symptoms GI/Abdominal: Reports: Abdominal Pain, Flatus, Nausea. Denies: Constipation, Diarrhea, Vomiting : Reports: Frequency. Denies: Dysuria Musculoskeletal: Reports: No Symptoms Skin: Reports: No Symptoms ED EXAM, GI/ABD - Physical Exam Exam: See Below Exam Limited By: No Limitations General Appearance: Alert, WD/WN, No Apparent Distress Respiratory/Chest: No Respiratory Distress, Lungs Clear, Normal Breath Sounds, No Accessory Muscle Use, Chest Non-Tender Cardiovascular: Regular Rate, Rhythm, No Murmur GI/Abdominal Exam: Soft, Tender (Tender right lower quadrant), Other (Psoas sign obturator sign positive pain heeltap negative) Course - Vital Signs Last Recorded V/S: Last Vital Signs Temp 97.2 F 04/05/19 17:18 Pulse 78 04/05/19 17:41 Resp 14 04/05/19 17:41 BP 113/83 04/05/19 17:41 Pulse Ox 95 04/05/19 17:41 - Orders/Labs/Meds Orders: Active Orders 24 hr Category Date Time Status Peripheral IV Care [RC] . DIRECTED Care 04/05/19 17:30 Active CULTURE URINE [RM] Urgent Lab 04/05/19 18:08 Received Iopamidol [Isovue-300 (61%)] Med 04/05/19 17:45 Active 100 ml IV . DIRECTED Lactated Ringers [Ringers, Lactated] 1,000 ml Med 04/05/19 17:30 Active IV ASDIRECTED Prochlorperazine [Compazine] Med 04/05/19 18:33 Once 5 mg IVPUSH ONETIME ONE Sodium Chloride 0.9% [Normal Saline] 75 ml Med 04/05/19 17:45 Active IV ASDIRECTED Sodium Chloride 0.9% [Saline Flush] Med 04/05/19 17:30 Active 10 ml FLUSH ASDIRECTED PRN Peripheral IV Insertion Adult [OM.PC] Urgent Oth 04/05/19 17:30 Ordered Medication Orders Lactated Ringer's (Ringers, Lactated) 1,000 mls @ 500 mls/hr IV ASDIRECTED RICH Last Admin: 04/05/19 18:00 Dose: 500 mls/hr Sodium Chloride (Normal Saline) 75 mls @ 3 mls/sec IV ASDIRECTED RICH Last Admin: 04/05/19 17:56 Dose: 3 mls/sec Iopamidol (Isovue-300 (61%)) 100 ml IV . DIRECTED RICH Last Admin: 04/05/19 17:56 Dose: 100 ml Prochlorperazine Edisylate (Compazine) 5 mg IVPUSH ONETIME ONE Stop: 04/05/19 18:34 Sodium Chloride (Saline Flush) 10 ml FLUSH ASDIRECTED PRN PRN Reason: Keep Vein Open Last Admin: 04/05/19 17:56 Dose: 10 ml Labs: Laboratory Tests 04/05/19 04/05/19 04/05/19 Range/Units 17:31 17:31 17:41 WBC 10.1 (4.5-11.0) K/uL RBC 3.74 (3.30-5.50) M/uL Hgb 11.4 L (12.0-15.0) g/dL Hct 35.3 L (36.0-48.0) % MCV 94 (80-98) fL MCH 31 (27-31) pg MCHC 32 (32-36) % Plt Count 312 (150-400) K/uL Neut % (Auto) 74 H (36-66) % Lymph % (Auto) 19 L (24-44) % Patrick % (Auto) 6 (2-6) % Eos % (Auto) 2 (2-4) % Baso % (Auto) 0 (0-1) % Sodium (140-148) mmol/L Potassium (3.6-5.2) mmol/L Chloride (100-108) mmol/L Carbon Dioxide (21-32) mmol/L Anion Gap (5.0-14.0) mmol/L BUN (7-18) mg/dL Creatinine (0.6-1.0) mg/dL Est Cr Clr Drug Dosing mL/min Estimated GFR (MDRD) (>60) Glucose (74-106) mg/dL Lactic Acid (0.4-2.0) mmol/L Calcium (8.5-10.1) mg/dL Total Bilirubin (0.2-1.0) mg/dL AST (15-37) U/L ALT (12-78) U/L Alkaline Phosphatase (46-116) U/L Total Protein (6.4-8.2) g/dL Albumin (3.4-5.0) g/dL Globulin (2.3-3.5) g/dL Albumin/Globulin Ratio (1.2-2.2) Lipase (73-393) U/L Urine Color Yellow (YELLOW) Urine Appearance Slightly cloudy A (CLEAR) Urine pH 6.0 (5.0-8.0) Ur Specific [place] <= 1.005 L (1.008-1.030) Urine Protein Negative (NEGATIVE) mg/dL Urine Glucose (UA) Negative (NEGATIVE) mg/dL Urine Ketones Negative (NEGATIVE) mg/dL Urine Occult Blood Trace-lysed H (NEGATIVE) Urine Nitrite Negative (NEGATIVE) Urine Bilirubin Negative (NEGATIVE) Urine Urobilinogen 0.2 (0.2-1.0) EU/dL Ur Leukocyte Esterase Small H (NEGATIVE) Urine RBC Not seen (0-5) Urine WBC 20-30 H (0-5) Ur Epithelial Cells Few Amorphous Sediment Not seen Urine Bacteria Many Urine Mucus Not seen Urine HCG, Qual Negative 04/05/19 04/05/19 Range/Units 17:41 17:41 WBC (4.5-11.0) K/uL RBC (3.30-5.50) M/uL Hgb (12.0-15.0) g/dL Hct (36.0-48.0) % MCV (80-98) fL MCH (27-31) pg MCHC (32-36) % Plt Count (150-400) K/uL Neut % (Auto) (36-66) % Lymph % (Auto) (24-44) % Patrick % (Auto) (2-6) % Eos % (Auto) (2-4) % Baso % (Auto) (0-1) % Sodium 137 L (140-148) mmol/L Potassium 3.7 (3.6-5.2) mmol/L Chloride 104 (100-108) mmol/L Carbon Dioxide 25 (21-32) mmol/L Anion Gap 11.7 (5.0-14.0) mmol/L BUN 7 D (7-18) mg/dL Creatinine 1.0 (0.6-1.0) mg/dL Est Cr Clr Drug Dosing 68.64 mL/min Estimated GFR (MDRD) > 60 (>60) Glucose 98 (74-106) mg/dL Lactic Acid 0.6 (0.4-2.0) mmol/L Calcium 8.5 (8.5-10.1) mg/dL Total Bilirubin 0.3 (0.2-1.0) mg/dL AST 16 (15-37) U/L ALT 15 (12-78) U/L Alkaline Phosphatase 93 (46-116) U/L Total Protein 6.7 (6.4-8.2) g/dL Albumin 2.9 L (3.4-5.0) g/dL Globulin 3.8 H (2.3-3.5) g/dL Albumin/Globulin Ratio 0.8 L (1.2-2.2) Lipase 291 (73-393) U/L Urine Color (YELLOW) Urine Appearance (CLEAR) Urine pH (5.0-8.0) Ur Specific [place] (1.008-1.030) Urine Protein (NEGATIVE) mg/dL Urine Glucose (UA) (NEGATIVE) mg/dL Urine Ketones (NEGATIVE) mg/dL Urine Occult Blood (NEGATIVE) Urine Nitrite (NEGATIVE) Urine Bilirubin (NEGATIVE) Urine Urobilinogen (0.2-1.0) EU/dL Ur Leukocyte Esterase (NEGATIVE) Urine RBC (0-5) Urine WBC (0-5) Ur Epithelial Cells Amorphous Sediment Urine Bacteria Urine Mucus Urine HCG, Qual Meds: Medications Generic Name Dose Route Start Last Admin Trade Name Robinq PRN Reason Stop Dose Admin Lactated Ringer's 1,000 mls @ 500 mls/hr 04/05/19 17:30 04/05/19 18:00 Ringers, Lactated IV 500 mls/hr ASDIRECTED RICH Administration Sodium Chloride 75 mls @ 3 mls/sec 04/05/19 17:45 04/05/19 17:56 Normal Saline IV 3 mls/sec ASDIRECTED RICH Administration Iopamidol 100 ml 04/05/19 17:45 04/05/19 17:56 Isovue-300 (61%) IV 100 ml . DIRECTED RICH Administration Prochlorperazine Edisylate 5 mg 04/05/19 18:33 Compazine IVPUSH 04/05/19 18:34 ONETIME ONE Sodium Chloride 10 ml 04/05/19 17:30 04/05/19 17:56 Saline Flush FLUSH 10 ml ASDIRECTED PRN Administration Keep Vein Open Discontinued Medications Generic Name Dose Route Start Last Admin Trade Name Robinq PRN Reason Stop Dose Admin Fentanyl 50 mcg 04/05/19 17:31 04/05/19 18:00 Sublimaze IVPUSH 04/05/19 17:32 50 mcg ONETIME ONE Administration Ondansetron HCl 4 mg 04/05/19 17:31 04/05/19 18:00 Zofran IVPUSH 04/05/19 17:32 4 mg ONETIME ONE Administration Sodium Chloride 10 ml 04/05/19 17:36 04/05/19 18:04 Saline Flush FLUSH 04/05/19 17:37 10 ml ONETIME ONE Administration Departure - Departure Time of Disposition: 18:36 Disposition: Home, Self-Care 01 Condition: Fair Clinical Impression: UTI (urinary tract infection) Qualifiers: Urinary tract infection type: acute cystitis Hematuria presence: without hematuria Qualified Code(s): N30.00 - Acute cystitis without hematuria - Discharge Information Instructions: Urinary Tract Infection, Adult, [id number] Referrals: PCP,None [Primary Care Provider] - Forms: ED Department Discharge Additional Instructions: Take full course of antibiotics, use Percocet as needed for pain control, please followup with your primary care provider in 3-5 days if not better, please call return to the emergency department with worsening of symptoms. Sepsis Event Note - Evaluation Sepsis Screening Result: No Definite Risk - Focused Exam Vital Signs: Vital Signs Temp Pulse Resp BP Pulse Ox 04/05/19 17:41 78 14 113/83 95 04/05/19 17:18 97.2 F 87 16 105/73 100 04/05/19 17:11 97.2 F 87 16 105/73 100 Date Exam was Performed: 04/05/19 Time Exam was Performed: 18:33 - My Orders Last 24 Hours: My Active Orders 04/05/19 17:30 Peripheral IV Care [RC] . DIRECTED Lactated Ringers [Ringers, Lactated] 1,000 ml IV ASDIRECTED Sodium Chloride 0.9% [Saline Flush] 10 ml FLUSH ASDIRECTED PRN Peripheral IV Insertion Adult [OM.PC] Urgent 04/05/19 17:45 Iopamidol [Isovue-300 (61%)] 100 ml IV . DIRECTED Sodium Chloride 0.9% [Normal Saline] 75 ml IV ASDIRECTED 04/05/19 18:08 CULTURE URINE [RM] Urgent 04/05/19 18:33 Prochlorperazine [Compazine] 5 mg IVPUSH ONETIME ONE - Assessment/Plan Last 24 Hours: My Active Orders 04/05/19 17:30 Peripheral IV Care [RC] . DIRECTED Lactated Ringers [Ringers, Lactated] 1,000 ml IV ASDIRECTED Sodium Chloride 0.9% [Saline Flush] 10 ml FLUSH ASDIRECTED PRN Peripheral IV Insertion Adult [OM.PC] Urgent 04/05/19 17:45 Iopamidol [Isovue-300 (61%)] 100 ml IV . DIRECTED Sodium Chloride 0.9% [Normal Saline] 75 ml IV ASDIRECTED 04/05/19 18:08 CULTURE URINE [RM] Urgent 04/05/19 18:33 Prochlorperazine [Compazine] 5 mg IVPUSH ONETIME ONE Plan: Assessment Acuity = acute Site and laterality = urinary tract infection with cystitis and urethritis on the right side Etiology = probable bacterial cause Manifestations = right-sided flank pain Location of injury = Home Lab values = CBC CMP unremarkable, urinalysis does reveal 10-20 WBCs consistent with pyuria cultures pending CT scan describes the cystitis and urethritis above Plan She is placed on Bactrim DS 1 tab p.o. twice daily [id number] along with oxycodone 5/325 1 tab p.o. 3 times daily PRN total #10 have follow-up primary care 3 to 5 days if not better This note was dictated using [employer] recognition software please call with any questions on syntax or grammar.
[2019-04-05] MEDS ORDERED: Sodium Chloride 0.9% 10 ML Syringe FLUSH ONE (17:36)
[2019-04-05] MEDS ORDERED: Sodium Chloride 0.9% 75 ML IV SCH (17:45)
[2019-04-05] MEDS ORDERED: Iopamidol 612 MG/ML 100 ML Bottle IV SCH (17:45)
--- NOTE | 2019-04-05 18:22 | CRLCT ---
INDICATION: Lower quadrant pain. TECHNIQUE: Volumetric helical scanning of the abdomen and pelvis was performed with 100 cc of Isovue 300 contrast material IV. Coronal and sagittal reconstructions were obtained. COMPARISON: Abdomen/pelvis CT of 01/01/2019. FINDINGS: There is no evidence of bowel obstruction or inflammation. A normal appendix is noted. No free fluid is demonstrated. The liver is normal in size, shape and attenuation. Post op changes of cholecystectomy are again demonstrated. No bile duct dilation is evident. The spleen is within normal limits. The adrenal glands are unremarkable. The pancreas is within normal limits. Postop changes of left nephrectomy are again demonstrated. The right renal parenchyma is unremarkable. There appears to be mild wall thickening and possible hyperenhancement of the right renal pelvis, ureter and bladder, raising question of inflammation. No lymphadenopathy is evident. The uterus is normal in size and appears to be arcuate. A grossly negative left ovary is noted. A right ovary is not identified with certainty. The lung bases are clear. The heart is normal in size. IMPRESSION: 1. Question cystitis, right ureteritis and right pyelitis. No evidence of pyelonephritis. 2. Normal appendix. 3. Post left nephrectomy and cholecystectomy. 4. Suspected arcuate uterus. Please note that all CT scans at this facility use dose modulation, iterative reconstruction, and/or weight-based dosing when appropriate to reduce radiation dose to as low as reasonably achievable. Dictated by Hernan Villareal MD @ Apr 05 2019 6:10PM Signed by Dr. Hernan Villareal @ Apr 05 2019 6:20PM
[2019-04-05] MEDS ORDERED: Prochlorperazine 10 MG/2 ML SDV IVPUSH ONE (18:33)
== END 2019-04-05 19:47 | disposition home or self-care (01) ==
LOC: JP.ED 16:38
DX: N30.00 Acute cystitis without hematuria (principal); K21.9 Gastro-esophageal reflux disease without esophagitis; F31.9 Bipolar disorder, unspecified; F41.9 Anxiety disorder, unspecified; F17.210 Nicotine dependence, cigarettes, uncomplicated; Z79.899 Other long term (current) drug therapy
CPT/HCPCS: 36415; 74177; 80053; 81001; 81025; 83605; 83690; 85025; 87086; 87088; 87186; 96361; 96374; 96375; 99284; J0780; J2405; J3010; J7050; J7120; Q9967